=== PATIENT | female | born 1950 | race Caucasian/White ===

== ENCOUNTER 2018-11-24 05:48 | Day surgery (SDC) | payer MEDICARE, OTHER ==
[2018-11-24 06:38] LABS: ABSOLUTE BASOPHILS # (AUTO) 0.1 10^3/uL (0.0-0.2); ABSOLUTE EOSINOPHILS # (AUTO) 0.3 10^3/uL (0.0-0.6); ABSOLUTE LYMPHOCYTES (AUTO) 1.5 10^3/uL (0.5-4.7); ABSOLUTE NEUT (AUTO) 6.6 10^3/uL (1.7-8.2); BASOPHILS % (AUTO) 1.2 % (0-2); EOSINOPHILS % (AUTO) 3.3 % (0-6); HEMATOCRIT 40.3 % (36.0-47.0); HEMOGLOBIN 13.1 g/dL (12.0-15.5); LYMPHOCYTES % (AUTO) 16.2 % (13-45); MEAN CORPUSCULAR HEMOGLOBIN 28.8 pg (27.0-33.4); MEAN CORPUSCULAR HGB CONC 32.6 g/dL (32.0-36.0); MEAN CORPUSCULAR VOLUME 88 fl (80-97); MONOCYTES % (AUTO) 10.1 % (3-13); PLATELET COUNT 187 10^3/uL (150-450); RED BLOOD COUNT 4.56 10^6/uL (3.72-5.28); RED CELL DISTRIBUTION WIDTH 15.7 % (11.5-14.0); SEGMENTED NEUTROPHILS % (AUTO) 69.2 % (42-78); TOTAL CELLS COUNTED % (AUTO) 100 %; WHITE BLOOD COUNT 9.5 10^3/uL (4.0-10.5)
[2018-11-24 06:44] LABS: INTERNATIONAL RATION (INR) 0.83; PARTIAL THROMBOPLASTIN TIME 29.4 SEC (23.5-35.8); PROTHROMBIN TIME 11.4 SEC (11.4-15.4)
[2018-11-24 07:03] LABS: BLOOD UREA NITROGEN 42 mg/dL (7-20); GLUCOSE 160 mg/dL (75-110)
[2018-11-24] MEDS ORDERED: MIDAZOLAM 2 MG/2 ML INJ ONE (08:35)
[2018-11-24] MEDS ORDERED: FENTANYL CITRATE INJ/PF 100 MCG/2 ML AMPUL ONE (08:35)
--- NOTE | 2018-11-24 10:24 | RADIOLOGY REPORT (SQ) ---
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 CTDIvol: 20.3 mGy. DLP: 574 mGy-cm. mGy. LIMITATIONS: None. PROCEDURE: After obtaining informed consent and explaining the risks and benefits of conscious sedat ion,the patient agreed to the procedure. Preliminary CT scanning to localize the biopsy site was performed. A site was marked on the left low er pole kidney and time out was performed. Procedure was performed using CT fluoroscopy. Total expos ure time: [address] fluoroscopic images were obtained and saved to PACS. IV conscious sedation was administered and physician direction by the registered nurse using 1 millig tony of Versed and 50 micrograms of fentanyl. Physiologic monitoring was provided before, during, and after sedation. The total sedation time was 30 minutes. Documentation face to face time, the performing proceduralist, spent monitoring the patient: 10 minut es. After sterile skin prep with ChloraPrep, local lidocaine for skin and deep tissue anesthesia, the lef t lower pole kidney was localized. A coaxial 18 gauge needle was used to obtain 3 cores of tissue fro m the left lower pole kidney. The biopsy tract was embolized with Gelfoam. All CT scanners at this facility use dose modulation, iterative reconstruction, and/or weight based d osing when appropriate to reduce radiation dose to as low as reasonably achievable (ALARA). [facility]: Dose Right [facility]: CareDose [facility]: Dose Right [facility]: Teradose 4D [facility]: Rooster Teeth FINDINGS: There were no immediate complications. Specimen was carried to cytology on sterile saline gauze and submitted to the neck cutter for processing. Pathology is pending at the time of dict ation. IMPRESSION: CT GUIDED LEFT KIDNEY CORTICAL BIOPSY. COMMENT: Pathology is pending Patient medication list reviewed:Yes- Quality ID# [id number]:Eligible professional attests to documenting in the medical record they obtained, updated, or reviewed the patient's current medications.. TECHNICAL DOCUMENTATION: JOB ID: [id number] Quality ID #[id number]: Final reports for procedures using fluoroscopy that document radiation exposure nura cayetano, or exposure time and number of fluorographic images (if radiation exposure indices are not avail able) Quality ID # [id number]: Final reports with documentation of one or more dose reduction techniques (e.g., Au tomated exposure control, adjustment of the mA and/or kV according to patient size, use of iterative reconstruction technique) 2010 [employer]- All Rights Reserved Reading location - IP/workstation name: [email or web address]
--- NOTE | 2018-11-24 10:24 | RADIOLOGY REPORT (SQ) ---
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 CTDIvol: 20.3 mGy. DLP: 574 mGy-cm. mGy. LIMITATIONS: None. PROCEDURE: After obtaining informed consent and explaining the risks and benefits of conscious sedat ion,the patient agreed to the procedure. Preliminary CT scanning to localize the biopsy site was performed. A site was marked on the left low er pole kidney and time out was performed. Procedure was performed using CT fluoroscopy. Total expos ure time: [address] fluoroscopic images were obtained and saved to PACS. IV conscious sedation was administered and physician direction by the registered nurse using 1 millig tony of Versed and 50 micrograms of fentanyl. Physiologic monitoring was provided before, during, and after sedation. The total sedation time was 30 minutes. Documentation face to face time, the performing proceduralist, spent monitoring the patient: 10 minut es. After sterile skin prep with ChloraPrep, local lidocaine for skin and deep tissue anesthesia, the lef t lower pole kidney was localized. A coaxial 18 gauge needle was used to obtain 3 cores of tissue fro m the left lower pole kidney. The biopsy tract was embolized with Gelfoam. All CT scanners at this facility use dose modulation, iterative reconstruction, and/or weight based d osing when appropriate to reduce radiation dose to as low as reasonably achievable (ALARA). [facility]: Dose Right [facility]: CareDose [facility]: Dose Right [facility]: Teradose 4D [facility]: BioDetego FINDINGS: There were no immediate complications. Specimen was carried to cytology on sterile saline gauze and submitted to the bridge builder for processing. Pathology is pending at the time of dict ation. IMPRESSION: CT GUIDED LEFT KIDNEY CORTICAL BIOPSY. COMMENT: Pathology is pending Patient medication list reviewed:Yes- Quality ID# [id number]:Eligible professional attests to documenting in the medical record they obtained, updated, or reviewed the patient's current medications.. TECHNICAL DOCUMENTATION: JOB ID: [id number] Quality ID #[id number]: Final reports for procedures using fluoroscopy that document radiation exposure nura cayetano, or exposure time and number of fluorographic images (if radiation exposure indices are not avail able) Quality ID # [id number]: Final reports with documentation of one or more dose reduction techniques (e.g., Au tomated exposure control, adjustment of the mA and/or kV according to patient size, use of iterative reconstruction technique) 2010 [employer]- All Rights Reserved Reading location - IP/workstation name: [facility]
[2018-11-24 12:36] VITALS: BP 153/76
== END 2018-11-24 11:30 | disposition home or self-care (01) ==
LOC: RAD 05:48
PROVIDERS: ATTEND Internal Medicine Nephrology
DX: E11.22 Type 2 diabetes mellitus with diabetic chronic kidney disease (principal); E11.21 Type 2 diabetes mellitus with diabetic nephropathy; I12.9 Hypertensive chronic kidney disease with stage 1 through stage 4 chronic kidney disease, or unspecified chronic kidney disease; N18.3 Chronic kidney disease, stage 3 (moderate); E87.5 Hyperkalemia; Z79.899 Other long term (current) drug therapy; Z79.01 Long term (current) use of anticoagulants
CPT/HCPCS: 36415; 84520; 82565; 82947; 85025; 85610; 85730; 88346 ×2; 88348 ×2; 88313 ×2; 77012; 50200; J2250; J3010

== ENCOUNTER 2019-05-11 14:49 | Inpatient (IN) | payer MEDICARE ==
[2019-05-11] MEDS ORDERED: METHYLPREDNISOLONE INJ 125 MG/2 ML SDV IV ONE ×2 (15:01→17:45)
[2019-05-11] MEDS ORDERED: IPRATROPIUM/ALBUTEROL 0.5-2.5 MG/3 ML AMPUL NEB ONE ×2 (15:01→19:12)
[2019-05-11] MEDS ORDERED: MAGNESIUM SULFATE/D5W 1 GM/100 ML RTUPB IV ONE ×4 (15:01→17:45)
--- NOTE | 2019-05-11 15:03 | ER Document Report ---
ED Medical Screen (RME) - General Chief Complaint: Congestion Stated Complaint: COUGH,CONGESTION,SHORT OF BREATH Time Seen by Provider: 05/11/19 14:56 Primary Care Provider: ERIK SAINI MD [Primary Care Provider] - Follow up as needed TRAVEL OUTSIDE OF THE [place] IN LAST 30 DAYS: No - HPI Notes: 05/11/19 15:02 Patient is a 68-year-old female with a history of hypertension, type 2 diabetes (glucose 159 this morning), asthma, former smoker who presents complaining of dry cough for the past 5 days with shortness of breath and wheezing associated. No fever or obvious chest pain. She is urinating normally. Denies any prolonged immobilization, distance travel, recent surgery/trauma, personal cancer history, hormone use, smoking, or previous DVT/PE. Denies JUSTICE, fever, neck pain, URI, n/v/d, Abd pain, dysuria, back pain, or rash. I have treated and performed a rapid initial assessment of this patient. A comprehensive ED assessment and evaluation of the patient, analysis of test results and completion of medical decision making process will be conducted by additional ED providers. PHYSICAL EXAMINATION: GENERAL: Well-appearing, well-nourished and in no acute distress. A&Ox4. Answers questions appropriately. LUNGS: Diffuse wheezing bilaterally. No retractions. HEART: Regular rate and rhythm - Related Data Allergies/Adverse Reactions: cefuroxime [From Ceftin] Allergy (Verified 11/24/18 06:18) pcn Allergy (Uncoded 11/24/18 06:18) Past Medical History - Past Medical History Cardiac Medical History: Reports: Hx Hypertension Denies: Hx Coronary Artery Disease, Hx Heart Attack Pulmonary Medical History: Reports: Hx Asthma - allergy Denies: Hx Bronchitis, Hx COPD, Hx Pneumonia Neurological Medical History: Denies: Hx Cerebrovascular Accident, Hx Seizures Musculoskeltal Medical History: Denies Hx Arthritis Physical Exam - Vital signs Vitals: Temp Pulse Resp BP Pulse Ox 97.8 F 77 20 154/79 H 88 L 05/11/19 14:53 05/11/19 14:53 05/11/19 14:53 05/11/19 14:53 05/11/19 14:53 Course - Vital Signs Vital signs: Temp Pulse Resp BP Pulse Ox 97.8 F 77 20 154/79 H 88 L 05/11/19 14:53 05/11/19 14:53 05/11/19 14:53 05/11/19 14:53 05/11/19 14:53 Doctor's Discharge - Discharge Referrals: ERIK SAINI MD [Primary Care Provider] - Follow up as needed
[2019-05-11 16:24] LABS: A TYPE INFLUENZA AG NEGATIVE (NEGATIVE); B INFLUENZA AG NEGATIVE (NEGATIVE)
--- NOTE | 2019-05-11 16:30 | RADIOLOGY REPORT (SQ) ---
EXAM DESCRIPTION: CHEST 2 VIEWS COMPLETED DATE/TIME: 05/11/2019 4:09 pm REASON FOR STUDY: SOB COMPARISON: 11/07/2010 NUMBER OF VIEWS: Two view. TECHNIQUE: Frontal and lateral radiographic views of the chest acquired. LIMITATIONS: None. FINDINGS: LUNGS AND PLEURA: Peribronchial cuffing and interstitial changes. No consolidation, effus ion, or pneumothorax. MEDIASTINUM AND HILAR STRUCTURES: Age-appropriate contour. HEART AND VASCULAR STRUCTURES: Similar cardiomegaly. BONES: No acute findings. HARDWARE: None in the chest. OTHER: No other significant finding. IMPRESSION: REACTIVE AIRWAY DISEASE VERSUS VIRAL SYNDROME. NO CONSOLIDATION. TECHNICAL DOCUMENTATION: JOB ID: [id number] [place]-72 2010 [employer]- All Rights Reserved Reading location - IP/workstation name: [email or web address]
--- NOTE | 2019-05-11 17:15 | ER Document Report ---
ED Respiratory Problem - General Chief Complaint: Congestion Stated Complaint: COUGH,CONGESTION,SHORT OF BREATH Time Seen by Provider: 05/11/19 14:56 Mode of Arrival: Ambulatory Information source: Patient TRAVEL OUTSIDE OF THE [place] IN LAST 30 DAYS: No - HPI Patient complains to provider of: Short of breath, Other - Wheezing Onset: Just prior to arrival Duration: Intermittent episodes Initiating Event: URI Quality of pain: No pain Pain Level: 0 Context: Other Short of Breath: Moderate Cough: Nonproductive Sputum amount: Scant - Related Data Allergies/Adverse Reactions: cefuroxime [From Ceftin] Allergy (Verified 11/24/18 06:18) pcn Allergy (Uncoded 11/24/18 06:18) Past Medical History - Social History Smoking Status: Never Smoker Lives with: Friend Family History: Reviewed & Not Pertinent - Past Medical History Cardiac Medical History: Reports: Hx Hypertension Denies: Hx Coronary Artery Disease, Hx Heart Attack Pulmonary Medical History: Reports: Hx Asthma - allergy Denies: Hx Bronchitis, Hx COPD, Hx Pneumonia Neurological Medical History: Denies: Hx Cerebrovascular Accident, Hx Seizures Musculoskeletal Medical History: Denies Hx Arthritis - Immunizations Hx Pneumococcal Vaccination: 02/07/19 Review of Systems - Review of Systems Constitutional: See HPI Respiratory: See HPI, Cough, Wheezing Physical Exam - Vital signs Vitals: Temp Pulse Resp BP Pulse Ox 97.8 F 77 20 154/79 H 88 L 05/11/19 14:53 05/11/19 14:53 05/11/19 14:53 05/11/19 14:53 05/11/19 14:53 Interpretation: Normal - General General appearance: Appears well, Alert - HEENT Head: Normocephalic, Atraumatic Eyes: Normal Pupils: PERRL - Respiratory Respiratory status: No respiratory distress, Depressed respirations Chest status: Nontender Breath sounds: Normal, Wheezing Chest palpation: Normal - Cardiovascular Rhythm: Regular Heart sounds: Normal auscultation Murmur: No - Abdominal Inspection: Normal Distension: No distension Bowel sounds: Normal Tenderness: Nontender Organomegaly: No organomegaly - Back Back: Normal, Nontender - Extremities General upper extremity: Normal inspection, Nontender, Normal color, Normal ROM, Normal temperature General lower extremity: Normal inspection, Nontender, Normal color, Normal ROM, Normal temperature, Normal weight bearing. No: Anali's sign - Neurological Neuro grossly intact: Yes Cognition: Normal Orientation: AAOx4 [place] Coma Scale Eye Opening: Spontaneous Carin Coma Scale Verbal: Oriented Carin Coma Scale Motor: Obeys Commands [place] Coma Scale Total: 15 Speech: Normal Motor strength normal: LUE, RUE, LLE, RLE Sensory: Normal - Psychological Associated symptoms: Normal affect, Normal mood - Skin Skin Temperature: Warm Skin Moisture: Dry Skin Color: Normal Course - Re-evaluation Re-evalutation: 05/11/19 19:48 Patient sats remain low around 91% off the oxygen. Patient is moving more air at this time with a louder wheezing. Patient is just finished a course of 2 g of magnesium IV receiving IV fluids at this time and another breathing treatment. 05/11/19 20:53 I reevaluated patient after treatments for her for asthma which was not improving her condition. She continued to have low sats in the 91- I reviewed patient's lab results with finally resulted showing a BNP of 3000 consistent with CHF. Again then looked at her chest x-ray which showed cardiomegaly and vascular congestive markings consistent with CHF hence the diagnosis of CHF was made and patient case was discussed with Dr. Barbosa for admission. Patient has begun on Lasix 40 mg IV Nitropaste half inch to the skin and morphine 2 mg IV. 92% with increasing wheezing. - Vital Signs Vital signs: Temp Pulse Resp BP Pulse Ox 97.8 F 77 20 154/79 H 98 05/11/19 14:53 05/11/19 14:53 05/11/19 14:53 05/11/19 14:53 05/11/19 17:00 - Laboratory Result Diagrams: 05/11/19 19:06 05/11/19 19:06 Laboratory results interpreted by me: 05/11/19 05/11/19 05/11/19 17:55 19:06 19:06 Hgb 10.9 L Hct 33.8 L RDW 15.5 H Lymph % (Auto) 12.8 L VBG pH BUN 23 H Creatinine 1.91 H Est GFR ( Amer) 32 L Est GFR (MDRD) Non-Af 26 L Glucose 118 H Direct Bilirubin 0.6 H AST 52 H NT-Pro-B Natriuret Pep Urine Protein >=500 H Leukocyte Esterase Rfl TRACE H 05/11/19 05/11/19 19:06 19:06 Hgb Hct RDW Lymph % (Auto) VBG pH 7.28 L BUN Creatinine Est GFR ( Amer) Est GFR (MDRD) Non-Af Glucose Direct Bilirubin AST NT-Pro-B Natriuret Pep 3070 H Urine Protein Leukocyte Esterase Rfl - Diagnostic Test Radiology reviewed: Image reviewed, Reports reviewed Discharge - Discharge Clinical Impression: Congestive heart failure, History of asthma, Hypertension Condition: Fair Disposition: ADMITTED INPATIENT Admitting Provider: Familia (Hospitalist) Unit Admitted: [facility]
[2019-05-11] MEDS ORDERED: NORMAL SALINE 1000 ML 1,000 ML IV ONE (17:27)
[2019-05-11] MEDS ORDERED: MAGNESIUM SULFATE/D5W 0 GM/0 ML RTUPB IV ONE (18:15)
[2019-05-11 18:22] LABS: APPEARANCE,URINE SLIGHTLY-CLOUDY; BILIRUBIN,URINE NEGATIVE (NEGATIVE); COLOR,URINE YELLOW; GLUCOSE, URINE NEGATIVE (NEGATIVE); KETONES,URINE NEGATIVE (NEGATIVE); PROTEIN,URINE >=500 mg/dL (NEGATIVE); URINE SPECIFIC GRAVITY 1.017; UROBILINOGEN,URINE NEGATIVE mg/dL (<2.0)
--- NOTE | 2019-05-11 19:25 | EKG REPORT ---
SEVERITY:- OTHERWISE NORMAL ECG - SINUS RHYTHM LOW VOLTAGE IN FRONTAL LEADS : Confirmed by: Thad Mckeon MD 11-May-2019 19:24:40
[2019-05-11 19:36] LABS: ABSOLUTE EOSINOPHILS # (AUTO) 0.1 10^3/uL (0.0-0.6); ABSOLUTE LYMPHOCYTES (AUTO) 0.7 10^3/uL (0.5-4.7); ABSOLUTE MONOCYTES (AUTO) 0.5 10^3/uL (0.1-1.4); ABSOLUTE NEUT (AUTO) 4.1 10^3/uL (1.7-8.2); BASOPHILS % (AUTO) 0.7 % (0-2); EOSINOPHILS % (AUTO) 2.4 % (0-6); HEMATOCRIT 33.8 % (36.0-47.0); HEMOGLOBIN 10.9 g/dL (12.0-15.5); LYMPHOCYTES % (AUTO) 12.8 % (13-45); MEAN CORPUSCULAR HEMOGLOBIN 27.3 pg (27.0-33.4); MEAN CORPUSCULAR HGB CONC 32.2 g/dL (32.0-36.0); MEAN CORPUSCULAR VOLUME 85 fl (80-97); MONOCYTES % (AUTO) 9.1 % (3-13); PLATELET COUNT 192 10^3/uL (150-450); RED BLOOD COUNT 3.99 10^6/uL (3.72-5.28); RED CELL DISTRIBUTION WIDTH 15.5 % (11.5-14.0); TOTAL CELLS COUNTED % (AUTO) 100 %; WHITE BLOOD COUNT 5.4 10^3/uL (4.0-10.5)
[2019-05-11] MEDS ORDERED: AZITHROMYCIN 250 MG TABLET PO ONE (19:44)
[2019-05-11 19:45] LABS: VENOUS BLOOD BASE EXCESS -2.2 mmol/L; VENOUS BLOOD HCO3 25.4 mmol/L (20-32); VENOUS BLOOD PCO2 54.9 mmHg (35-63); VENOUS BLOOD PH 7.28 (7.30-7.42)
[2019-05-11 19:59] LABS: ALBUMIN 4.2 g/dL (3.5-5.0); ALKALINE PHOSPHATASE 49 U/L (38-126); ANION GAP 11 (5-19); ASPARTATE AMINO TRANSFERASE 52 U/L (14-36); BILIRUBIN,DIRECT 0.6 mg/dL (0.0-0.4); BILIRUBIN,TOTAL 0.7 mg/dL (0.2-1.3); BLOOD UREA NITROGEN 23 mg/dL (7-20); CALCIUM 9.8 mg/dL (8.4-10.2); CARBON DIOXIDE 26 mmol/L (22-30); CHLORIDE 103 mmol/L (98-107); GLUCOSE 118 mg/dL (75-110); POTASSIUM 4.6 mmol/L (3.6-5.0); TOTAL PROTEIN 7.6 g/dL (6.3-8.2)
[2019-05-11 20:11] LABS: NT PRO BNP 3070 pg/mL (<125)
[2019-05-11 20:12] LABS: TROPONIN I < 0.012 ng/mL
[2019-05-11] MEDS ORDERED: FUROSEMIDE INJ/PF 40 MG/4 ML SDV IV ONE (20:34)
[2019-05-11] MEDS ORDERED: MORPHINE SULFATE 10 MG/ML INJ IV ONE (20:35)
[2019-05-11] MEDS ORDERED: NITROGLYCERIN 2% OINTMENT 1 GM PACKET TP ONE (20:36)
[2019-05-11] MEDS ORDERED: ACETAMINOPHEN 325 MG TABLET PO PRN (20:43)
[2019-05-11] MEDS ORDERED: MAG HYDROX/AL HYDROX/SIMETH SUSP 30 ML UDCUP PO PRN (20:43)
[2019-05-11] MEDS ORDERED: DEXTROSE 40% GEL 15 GM TUBE PO PRN ×2 (20:47)
[2019-05-11] MEDS ORDERED: DEXTROSE 50%-WATER 25 GM/50 ML DISP.SYRIN IV PRN ×2 (20:47)
[2019-05-11] MEDS ORDERED: GLUCAGON,HUMAN RECOMB 1 MG INJ IM PRN (20:47)
[2019-05-11] MEDS: METOPROLOL TARTRATE 100 MG TABLET PO SCH (21:34)
[2019-05-11] MEDS: POTASSIUM CHLORIDE 10 MEQ TABLET.ER PO SCH (21:35)
[2019-05-11] MEDS: HEPARIN SOD (PORCINE) 5,000 UNIT/ML 1 ML VIAL SUBCUT SCH (21:37)
[2019-05-11] MEDS: INSULIN GLARGINE,HUM.REC.ANLOG 1,000 UNIT/10 ML VIAL SUBCUT SCH (23:29)
[2019-05-12 02:46] LABS: ABSOLUTE LYMPHOCYTES (AUTO) 0.4 10^3/uL (0.5-4.7); ABSOLUTE MONOCYTES (AUTO) 0.1 10^3/uL (0.1-1.4); ABSOLUTE NEUT (AUTO) 4.7 10^3/uL (1.7-8.2); BASOPHILS % (AUTO) 0.3 % (0-2); HEMATOCRIT 33.2 % (36.0-47.0); HEMOGLOBIN 10.9 g/dL (12.0-15.5); MEAN CORPUSCULAR HEMOGLOBIN 27.5 pg (27.0-33.4); MEAN CORPUSCULAR HGB CONC 32.7 g/dL (32.0-36.0); MEAN CORPUSCULAR VOLUME 84 fl (80-97); MONOCYTES % (AUTO) 2.6 % (3-13); PLATELET COUNT 184 10^3/uL (150-450); RED BLOOD COUNT 3.94 10^6/uL (3.72-5.28); RED CELL DISTRIBUTION WIDTH 16.2 % (11.5-14.0); SEGMENTED NEUTROPHILS % (AUTO) 89.1 % (42-78); TOTAL CELLS COUNTED % (AUTO) 100 %; WHITE BLOOD COUNT 5.3 10^3/uL (4.0-10.5)
[2019-05-12 02:57] LABS: ANION GAP 12 (5-19); BLOOD UREA NITROGEN 27 mg/dL (7-20); CALCIUM 9.5 mg/dL (8.4-10.2); CARBON DIOXIDE 24 mmol/L (22-30); CHLORIDE 103 mmol/L (98-107); GLUCOSE 340 mg/dL (75-110); POTASSIUM 4.9 mmol/L (3.6-5.0)
--- NOTE | 2019-05-12 05:03 | PDOC H&P ---
History of Present Illness Admission Date/PCP: 05/11/19 20:47 ERIK SAINI MD Patient complains of: SOB History of Present Illness: NAYAN ZAPATA is a 68 year old female with a past medical history of CKD 3, diabetes, hypertension and morbid obesity. She presents with 3 days of orthopnea, nonproductive cough, shortness of breath and lower extremity edema. She admits to dietary indiscretion and running out of her combination blood pressure medication. In the emergency department she is found to be tachypneic with a systolic blood pressure in the 190s, chest x-ray reveals pulmonary edema, labs reveal a BNP of 3000. She started on IV Lasix and referred to the hospitalist for admission. She denies chest pain nausea or vomiting. She denies a history of obstructive sleep apnea. Past Medical History Cardiac Medical History: Reports: Hypertension Denies: Coronary Artery Disease, Myocardial Infarction Pulmonary Medical History: Reports: Asthma - allergy Denies: Bronchitis, Chronic Obstructive Pulmonary Disease (COPD), Pneumonia Neurological Medical History: Denies: Seizures Endocrine Medical History: Reports: Diabetes Mellitus Type 2, Obesity Renal/ Medical History: Reports: Chronic Kidney Disease Musculoskeltal Medical History: Denies: Arthritis Hematology: Denies: Anemia Social History Information Source: Patient, [facility] Records Lives with: Friend Smoking Status: Never Smoker Frequency of Alcohol Use: None Drugs: None - Advance Directive Resuscitation Status: Full Code Family History Family History: Hypertension Parental Family History Reviewed: Yes Children Family History Reviewed: Yes Sibling(s) Family History Reviewed.: Yes Medication/Allergy Home Medications: Albuterol Sulfate [Proair Hfa Inhalation Aerosol 8.5 gm Mdi] 2 puff IH Q4 PRN 05/11/19 Alprazolam [Xanax] 0.5 mg PO BIDP PRN 05/11/19 Doxazosin Mesylate [Cardura 2 mg Tablet] 2 mg PO QHS 05/11/19 Fenofibrate [Lipofen] 200 mg PO DAILY 05/11/19 Fluticasone Propionate [Flonase Nasal [place] 50 Mcg/[place] 16 gm] 2 sprays NASL DAILY 05/11/19 Hydralazine HCl 100 mg PO BID 05/11/19 Linagliptin/Metformin HCl [Jentadueto Xr 2.5 mg-1,000 mg] 2 each PO DAILY 05/11/19 Losartan/Hydrochlorothiazide [Hyzaar 100-12.5 Tablet] 1 each PO DAILY 05/11/19 Repaglinide 1 mg PO TID 05/11/19 Spironolactone [Aldactone 25 mg Tablet] 25 mg PO DAILY 05/11/19 Tapentadol Hydrochloride [Nucynta] 50 mg PO QIDP PRN 05/11/19 Allergies/Adverse Reactions: cefuroxime [From Ceftin] Allergy (Verified 11/24/18 06:18) pcn Allergy (Uncoded 11/24/18 06:18) Review of Systems Constitutional: PRESENT: as per HPI, fatigue, weight gain. ABSENT: fever(s), headache(s), night sweats, weakness Eyes: ABSENT: visual disturbances Ears: ABSENT: hearing changes Cardiovascular: PRESENT: as per HPI, dyspnea on exertion, edema, orthropnea. ABSENT: chest pain, palpitations Respiratory: PRESENT: as per HPI, cough, dyspnea. ABSENT: hemoptysis, sputum Gastrointestinal: ABSENT: abdominal pain, constipation, diarrhea, hematemesis, hematochezia, nausea, vomiting Genitourinary: ABSENT: dysuria, hematuria Musculoskeletal: ABSENT: joint swelling Integumentary: ABSENT: rash, wounds Neurological: ABSENT: abnormal gait, abnormal speech, confusion, dizziness, focal weakness, syncope Psychiatric: ABSENT: anxiety, depression, homidical ideation, suicidal ideation Endocrine: ABSENT: cold intolerance, heat intolerance, polydipsia, polyuria Hematologic/Lymphatic: ABSENT: easy bleeding, easy bruising Physical Exam Vital Signs: Temp Pulse Resp BP Pulse Ox 97.8 F 77 17 122/108 H 95 05/11/19 14:53 05/11/19 14:53 05/11/19 23:00 05/11/19 22:00 05/11/19 23:00 Intake & Output 05/10/19 05/11/19 05/12/19 11:59 11:59 11:59 Intake Total 300 Balance 300 Weight 138.799 kg General appearance: PRESENT: cooperative, mild distress, morbidly obese, well- developed, well-nourished Head exam: PRESENT: atraumatic, normocephalic Eye exam: PRESENT: conjunctiva pink, EOMI, PERRLA. ABSENT: scleral icterus Ear exam: PRESENT: normal external ear exam Mouth exam: PRESENT: moist, tongue midline Neck exam: PRESENT: JVD. ABSENT: carotid bruit, lymphadenopathy, thyromegaly Respiratory exam: PRESENT: accessory muscle use, crackles, symmetrical, tachypnea. ABSENT: rales, rhonchi, wheezes Cardiovascular exam: PRESENT: gallop, RRR. ABSENT: diastolic murmur, rubs, systolic murmur Pulses: PRESENT: normal dorsalis pedis pul Vascular exam: PRESENT: normal capillary refill GI/Abdominal exam: PRESENT: normal bowel sounds, soft. ABSENT: distended, guarding, mass, organolmegaly, rebound, tenderness Rectal exam: PRESENT: deferred Extremities exam: PRESENT: full ROM, +1 edema. ABSENT: calf tenderness, clubbing, pedal edema Neurological exam: PRESENT: alert, awake, oriented to person, oriented to place, oriented to time, oriented to situation, CN II-XII grossly intact. ABSENT: motor sensory deficit Psychiatric exam: PRESENT: appropriate affect, normal mood. ABSENT: homicidal ideation, suicidal ideation Skin exam: PRESENT: dry, intact, warm. ABSENT: cyanosis, rash Results Laboratory Results: 05/12/19 02:37 05/12/19 02:37 05/11/19 05/11/19 05/11/19 17:55 19:06 19:06 WBC 5.4 RBC 3.99 Hgb 10.9 L Hct 33.8 L MCV 85 MCH 27.3 MCHC 32.2 RDW 15.5 H Plt Count 192 Seg Neutrophils % 75.0 VBG pH VBG pCO2 VBG HCO3 VBG Base Excess Sodium 140.1 Potassium 4.6 Chloride 103 Carbon Dioxide 26 Anion Gap 11 BUN 23 H Creatinine 1.91 H Est GFR ( Amer) 32 L Glucose 118 H Calcium 9.8 Total Bilirubin 0.7 AST 52 H Alkaline Phosphatase 49 Total Protein 7.6 Albumin 4.2 TSH Urine Color YELLOW Urine Appearance SLIGHTLY-CLOUDY Urine pH 5.0 Ur Specific [place] 1.017 Urine Protein >=500 H Urine Glucose (UA) NEGATIVE Urine Ketones NEGATIVE Urine Blood NEGATIVE Urine RBC (Auto) 0 05/11/19 05/11/19 05/12/19 19:06 19:06 02:37 WBC 5.3 RBC 3.94 Hgb 10.9 L Hct 33.2 L MCV 84 MCH 27.5 MCHC 32.7 RDW 16.2 H Plt Count 184 Seg Neutrophils % 89.1 H VBG pH 7.28 L VBG pCO2 54.9 VBG HCO3 25.4 VBG Base Excess -2.2 Sodium Potassium Chloride Carbon Dioxide Anion Gap BUN Creatinine Est GFR ( Amer) Glucose Calcium Total Bilirubin AST Alkaline Phosphatase Total Protein Albumin TSH 1.33 Urine Color Urine Appearance Urine pH Ur Specific [place] Urine Protein Urine Glucose (UA) Urine Ketones Urine Blood Urine RBC (Auto) 05/12/19 02:37 WBC RBC Hgb Hct MCV MCH MCHC RDW Plt Count Seg Neutrophils % VBG pH VBG pCO2 VBG HCO3 VBG Base Excess Sodium 138.5 Potassium 4.9 Chloride 103 Carbon Dioxide 24 Anion Gap 12 BUN 27 H Creatinine 1.92 H Est GFR ( Amer) 32 L Glucose 340 H Calcium 9.5 Total Bilirubin AST Alkaline Phosphatase Total Protein Albumin TSH Urine Color Urine Appearance Urine pH Ur Specific [place] Urine Protein Urine Glucose (UA) Urine Ketones Urine Blood Urine RBC (Auto) 05/11/19 05/11/19 05/12/19 19:06 21:56 02:37 Troponin I < 0.012 < 0.012 < 0.012 NT-Pro-B Natriuret Pep 3070 H Impressions: Chest X-Ray 05/11/19 15:00 IMPRESSION: REACTIVE AIRWAY DISEASE VERSUS VIRAL SYNDROME. NO CONSOLIDATION. Assessment and Plan - Diagnosis (1) Hypertensive urgency Is this a current diagnosis for this admission?: Yes Plan: IV Lasix, hydralazine and nitrates. (2) Diabetes Is this a current diagnosis for this admission?: Yes Plan: Lantus 10 units nightly and Humalog sliding scale QIC (3) Obstructive sleep apnea Is this a current diagnosis for this admission?: Yes Plan: Undiagnosed but strongly suspected by history, trial BiPAP (4) Congestive heart failure Is this a current diagnosis for this admission?: Yes Plan: Likely secondary to indiscretion of medication lifestyle, 2D echo, education, optimize pressure and volume. (5) CKD stage 3 due to type 2 diabetes mellitus Is this a current diagnosis for this admission?: Yes Plan: Appears at baseline, avoid nephrotoxic meds and doses, follow-up chemistry. - Time Time Spent with patient: 25-34 minutes - Inpatient Certification Medical Necessity: Need Close Monitoring Due to Risk of Patient Decompensation
[2019-05-12] MEDS: HEPARIN SOD (PORCINE) 5,000 UNIT/ML 1 ML VIAL SUBCUT SCH ×3 (06:23→21:56)
[2019-05-12] MEDS: INSULIN LISPRO 100 UNIT/ML 3 ML VIAL SUBCUT SCH ×3 (07:58→21:41)
[2019-05-12] MEDS ORDERED: NITROGLYCERIN 5 MG (0.2 MG/HR) PATCH.TD24 TD SCH (10:00)
[2019-05-12] MEDS ORDERED: FUROSEMIDE INJ/PF 40 MG/4 ML SDV IV SCH (10:00)
[2019-05-12] MEDS ORDERED: LOSARTAN POTASSIUM 50 MG TABLET PO SCH (10:00)
[2019-05-12] MEDS: POTASSIUM CHLORIDE 10 MEQ TABLET.ER PO SCH ×2 (10:16→21:56)
[2019-05-12] MEDS: ASPIRIN 81 MG TABLET, ENT COATED PO SCH (10:16)
[2019-05-12] MEDS: METOPROLOL TARTRATE 100 MG TABLET PO SCH (10:16)
--- NOTE | 2019-05-12 18:24 | PDOC PROGRESS REPORT ---
Subjective Progress Note for:: 05/12/19 Subjective:: NAYAN ZAPATA is a 68 year old female with a past medical history of CKD 3, diabetes, hypertension and morbid obesity who was admitted 05/11/19 for Hypertensive urgency and CHF exacerbation. The patient was seen on afternoon rounds while still in the emergency departm ent. She reports that she is feeling much better. She does remain on supplemental oxygen at 2 L/min; oxygen saturations noted to be in the high 90s. She is not home O2 dependent. She is looking forward to working with the transitions nutritional health coach, registered dietitian, and patient educator for better m anagement of her chronic medical conditions. She is agreeable to home health service. She does continue to have slight dyspnea with mild exertion and orthopnea, however, she notes that these are also improved. She denies fever, chills, chest pain, palpitations, abdominal pain, nausea vomiting and diarrhea. She has no other questions or concerns. No concerns per nursing. Reason For Visit: SANTOS, MORBID OBESITY CKD DM HEART FAILURE Physical Exam Vital Signs: Temp Pulse Resp BP Pulse Ox 97.6 F 77 15 167/80 H 99 05/12/19 06:23 05/11/19 14:53 05/12/19 09:12 05/12/19 09:12 05/12/19 09:12 Intake & Output 05/11/19 05/12/19 05/13/19 06:59 06:59 06:59 Intake Total 300 Balance 300 Weight 138.799 kg General appearance: PRESENT: no acute distress, cooperative, morbidly obese, well-developed, well-nourished Head exam: PRESENT: atraumatic, normocephalic Eye exam: PRESENT: conjunctiva pink, EOMI, PERRLA. ABSENT: scleral icterus Ear exam: PRESENT: normal external ear exam Mouth exam: PRESENT: moist, tongue midline Respiratory exam: PRESENT: prolonged expiratory phas, symmetrical, unlabored, wheezes, other - Supplemental oxygen by nasal cannula. ABSENT: rales, rhonchi Cardiovascular exam: PRESENT: RRR, +S1, +S2. ABSENT: diastolic murmur, rubs, systolic murmur Pulses: PRESENT: normal dorsalis pedis pul Vascular exam: PRESENT: normal capillary refill GI/Abdominal exam: PRESENT: normal bowel sounds, soft. ABSENT: distended, guarding, mass, organolmegaly, rebound, tenderness Rectal exam: PRESENT: deferred Extremities exam: PRESENT: full ROM, +1 edema - Bilaterally. ABSENT: calf tenderness, clubbing, pedal edema Neurological exam: PRESENT: alert, awake, oriented to person, oriented to place, oriented to time, oriented to situation, CN II-XII grossly intact. ABSENT: motor sensory deficit Psychiatric exam: PRESENT: appropriate affect, normal mood. ABSENT: homicidal ideation, suicidal ideation Skin exam: PRESENT: dry, intact, warm. ABSENT: cyanosis, rash Results Laboratory Results: 05/12/19 02:37 05/12/19 02:37 05/11/19 05/11/19 05/11/19 17:55 19:06 19:06 WBC 5.4 RBC 3.99 Hgb 10.9 L Hct 33.8 L MCV 85 MCH 27.3 MCHC 32.2 RDW 15.5 H Plt Count 192 Seg Neutrophils % 75.0 VBG pH VBG pCO2 VBG HCO3 VBG Base Excess Sodium 140.1 Potassium 4.6 Chloride 103 Carbon Dioxide 26 Anion Gap 11 BUN 23 H Creatinine 1.91 H Est GFR ( Amer) 32 L Glucose 118 H Calcium 9.8 Total Bilirubin 0.7 AST 52 H Alkaline Phosphatase 49 Total Protein 7.6 Albumin 4.2 TSH Urine Color YELLOW Urine Appearance SLIGHTLY-CLOUDY Urine pH 5.0 Ur Specific [place] 1.017 Urine Protein >=500 H Urine Glucose (UA) NEGATIVE Urine Ketones NEGATIVE Urine Blood NEGATIVE Urine RBC (Auto) 0 05/11/19 05/11/19 05/12/19 19:06 19:06 02:37 WBC 5.3 RBC 3.94 Hgb 10.9 L Hct 33.2 L MCV 84 MCH 27.5 MCHC 32.7 RDW 16.2 H Plt Count 184 Seg Neutrophils % 89.1 H VBG pH 7.28 L VBG pCO2 54.9 VBG HCO3 25.4 VBG Base Excess -2.2 Sodium Potassium Chloride Carbon Dioxide Anion Gap BUN Creatinine Est GFR ( Amer) Glucose Calcium Total Bilirubin AST Alkaline Phosphatase Total Protein Albumin TSH 1.33 Urine Color Urine Appearance Urine pH Ur Specific [place] Urine Protein Urine Glucose (UA) Urine Ketones Urine Blood Urine RBC (Auto) 05/12/19 02:37 WBC RBC Hgb Hct MCV MCH MCHC RDW Plt Count Seg Neutrophils % VBG pH VBG pCO2 VBG HCO3 VBG Base Excess Sodium 138.5 Potassium 4.9 Chloride 103 Carbon Dioxide 24 Anion Gap 12 BUN 27 H Creatinine 1.92 H Est GFR ( Amer) 32 L Glucose 340 H Calcium 9.5 Total Bilirubin AST Alkaline Phosphatase Total Protein Albumin TSH Urine Color Urine Appearance Urine pH Ur Specific [place] Urine Protein Urine Glucose (UA) Urine Ketones Urine Blood Urine RBC (Auto) 05/11/19 05/11/19 05/12/19 19:06 21:56 02:37 Troponin I < 0.012 < 0.012 < 0.012 NT-Pro-B Natriuret Pep 3070 H 05/12/19 09:00 Troponin I < 0.012 NT-Pro-B Natriuret Pep Impressions: Chest X-Ray 05/11/19 15:00 IMPRESSION: REACTIVE AIRWAY DISEASE VERSUS VIRAL SYNDROME. NO CONSOLIDATION. Assessment and Plan - Diagnosis (1) Hypertensive urgency Is this a current diagnosis for this admission?: Yes Plan: Patient is admitted to [facility] on continuous cardiac telemetry. We will continue her home medication regiment of Cardura, losartan, hydro chlorothiazide, spironolactone, and hydralazine. Continue to diurese with IV furosemide. They are initiating beta-kallie therapy. Low-sodium diet. (2) Congestive heart failure Is this a current diagnosis for this admission?: Yes Plan: Likely secondary to indiscretion of medication lifestyle Echocardiogram has been obtained; formalize report pending. proBNP elevated to 3000. Troponins negative x4. Patient is placed on a prerenal diet. Daily weights, strict I&O's. Resume home dose Cardura, losartan, hydrochlorothiazide, spironolactone, and hydralazine. Consider initiation of beta-kallie. Continue furosemide for diuresis. Daily aspirin and fenofibrate therapy. Consider cardiology consultation. (3) Diabetes Is this a current diagnosis for this admission?: Yes Plan: A1c is 7.8%. She is placed on a consistent carb/prerenal diet. Home medication regiment on hold (nonformulary). Accu-Cheks before meals and at bedtime with Humalog for sliding scale coverage. Hypoglycemia protocol. Registered dietitian and medical educator consulted. (4) History of asthma Is this a current diagnosis for this admission?: Yes Plan: Slight wheezing noted on exam today. She is not on maintenance medications. We will resume Flonase. Supplemental oxygen as needed. As needed nebulizer treatments. (5) Obstructive sleep apnea Is this a current diagnosis for this admission?: Yes Plan: Undiagnosed but strongly suspected by history, trial BiPAP Recommend outpatient sleep study. (6) CKD stage 3 due to type 2 diabetes mellitus Is this a current diagnosis for this admission?: Yes Plan: Appears at baseline, avoid nephrotoxic meds and doses, follow-up chemistry. - Time Time Spent with patient: 25-34 minutes Medications reviewed and adjusted accordingly: Yes Anticipated discharge: Home with Homehealth Within: within 48 hours
[2019-05-12] MEDS ORDERED: REPAGLINIDE 1 MG PO SCH (19:00)
--- NOTE | 2019-05-12 21:52 | XCELERA REPORT ---
[address] [address] Transthoracic Echocardiogram Report Name: NAYAN ZAPATA Age: 68 yrs Gender: Female : 1950 Patient Status: Inpatient Patient [address] Study Date: 05/12/2019 10:46 AM Height: 63 in Weight: 306 lb BSA: 2.3 m2 Procedure: A two-dimensional transthoracic echocardiogram with color flow and Doppler was performed. Study Quality: Fair. Reason For Study: systolic murmur / CHF History: systolic murmur / CHF. Ordering Physician: JOHNATHON DORADO Performed By: Terry Morris Interpretation Summary The left ventricle is normal in size. LV EF is > than 65% Left ventricular systolic function is normal. Doppler measurements suggest normal left ventricular diastolic function The left ventricular wall motion is normal. There is no thrombus. No ASD ,VSD , or PFO seen. The right ventricle is not well visualized secondary to technical limitations The right atrium is mildly dilated. The left atrium is moderately dilated. There is mild to moderate mitral annular calcification. There is mild mitral leaflet calcification. There is no evidence of mitral valve prolapse. There is no vegetation seen on the mitral valve. There is mild mitral stenosis There is a mild amount of mitral regurgitation There is no aortic valvular vegetation. There is no aortic valve stenosis There is aortic sclerosis without aortic stenosis. There is no LVOT obstruction. No aortic regurgitation is present. There is no tricuspid stenosis. There is a mild to moderate amount of tricuspid regurgitation There is servere pulmonary hypertension by echo RVSP is at least 82 mm of Hg , with RA mean of atleast 20. There is no pulmonic valvular stenosis. There is no pulmonic valvular regurgitation. The aortic root is normal size. The inferior vena cava appeared dilated and did not change with respiration (RAP > 20 mmHg) Small pericardial effusion. There is a small pericardial effusion that is circumferential There are no echocardiographic or Doppler indications for cardiac tamponade MMode/2D Measurements & Calculations RVDd: 4.3 cm LVIDd: 4.8 cm FS: 41.0 % Ao root diam: 2.7 cm IVSd: 0.94 cm LVIDs: 2.8 cm EDV(Teich): 108.9 ml Ao root area: 5.7 cm2 LVPWd: 0.89 cm ESV(Teich): 30.8 ml LA dimension: 4.8 cm EF(Teich): 71.7 % Doppler Measurements & Calculations MV E max ziyad: MV P1/2t max ziyad: Ao V2 max: LV V1 max P.9 cm/sec 121.3 cm/sec 174.6 cm/sec 6.7 mmHg MV A max ziyad: MV P1/2t: 73.5 msec Ao max PG: LV V1 max: 58.2 cm/sec MVA(P1/2t): 3.0 cm2 12.2 mmHg 129.3 cm/sec MV E/A: 2.1 MV dec slope: 483.1 cm/sec2 MV dec time: 0.21 sec PA V2 max: TR max ziyad: MV P1/2t-pr_phl: 97.7 cm/sec 394.9 cm/sec 73.5 msec PA max P.8 mmHgTR max P.4 mmHg Left Ventricle The left ventricle is normal in size. LV EF is > than 65%. Left ventricular systolic function is normal. Doppler measurements suggest normal left ventricular diastolic function. The left ventricular wall motion is normal. There is no thrombus. No ASD ,VSD , or PFO seen. Right Ventricle The right ventricle is not well visualized secondary to technical limitations. Atria The right atrium is mildly dilated. The left atrium is moderately dilated. Mitral Valve There is mild to moderate mitral annular calcification. There is mild mitral leaflet calcification. There is no evidence of mitral valve prolapse. There is no vegetation seen on the mitral valve. There is mild mitral stenosis. There is a mild amount of mitral regurgitation. Aortic Valve There is no aortic valvular vegetation. There is no aortic valve stenosis. There is aortic sclerosis without aortic stenosis. There is no LVOT obstruction. No aortic regurgitation is present. Tricuspid Valve There is no tricuspid stenosis. There is a mild to moderate amount of tricuspid regurgitation. There is servere pulmonary hypertension by echo. RVSP is at least 82 mm of Hg , with RA mean of atleast 20. Pulmonic Valve There is no pulmonic valvular stenosis. There is no pulmonic valvular regurgitation. Great Vessels The aortic root is normal size. The inferior vena cava appeared dilated and did not change with respiration (RAP > 20 mmHg). Effusions Small pericardial effusion. There is a small pericardial effusion that is circumferential. There are no echocardiographic or Doppler indications for cardiac tamponade. : JOHNATHON DORADO Lakshmi
[2019-05-12] MEDS: INSULIN GLARGINE,HUM.REC.ANLOG 1,000 UNIT/10 ML VIAL SUBCUT SCH (21:57)
[2019-05-12] MEDS: DOXAZOSIN MESYLATE 2 MG TABLET PO SCH (22:04)
[2019-05-13 05:26] LABS: HEMATOCRIT 31.4 % (36.0-47.0); HEMOGLOBIN 10.2 g/dL (12.0-15.5); MEAN CORPUSCULAR HEMOGLOBIN 27.5 pg (27.0-33.4); MEAN CORPUSCULAR HGB CONC 32.6 g/dL (32.0-36.0); MEAN CORPUSCULAR VOLUME 84 fl (80-97); PLATELET COUNT 198 10^3/uL (150-450); RED BLOOD COUNT 3.72 10^6/uL (3.72-5.28); RED CELL DISTRIBUTION WIDTH 16.1 % (11.5-14.0); WHITE BLOOD COUNT 8.2 10^3/uL (4.0-10.5)
[2019-05-13 05:44] LABS: ANION GAP 10 (5-19); BLOOD UREA NITROGEN 48 mg/dL (7-20); CARBON DIOXIDE 24 mmol/L (22-30); CHLORIDE 105 mmol/L (98-107); GLUCOSE 160 mg/dL (75-110); POTASSIUM 5.3 mmol/L (3.6-5.0)
[2019-05-13] MEDS: HEPARIN SOD (PORCINE) 5,000 UNIT/ML 1 ML VIAL SUBCUT SCH ×3 (05:59→21:57)
[2019-05-13] MEDS: INSULIN LISPRO 100 UNIT/ML 3 ML VIAL SUBCUT SCH ×3 (08:16→17:16)
[2019-05-13] MEDS: HYDRALAZINE HCL 50 MG TABLET PO SCH ×2 (09:04→17:16)
[2019-05-13] MEDS: FLUTICASONE NASAL SPRAY 50 MCG/SPRY 120 SPRAY/16 GM NASL SCH (09:04)
[2019-05-13] MEDS: FENOFIBRATE NANOCRYSTALLIZED 145 MG TABLET PO SCH (09:04)
[2019-05-13] MEDS: ASPIRIN 81 MG TABLET, ENT COATED PO SCH (09:04)
[2019-05-13] MEDS ORDERED: LOSARTAN POTASSIUM 50 MG TABLET PO SCH (10:00)
[2019-05-13] MEDS ORDERED: HYDROCHLOROTHIAZIDE 12.5 MG TABLET PO SCH (10:00)
[2019-05-13] MEDS ORDERED: (PENDING PHARMACY ID) (Hydralazine Hcl [Hydralazine Hcl] 100 MG) PO SCH (10:00)
[2019-05-13] MEDS ORDERED: FENOFIBRATE 200 MG PO SCH (10:00)
[2019-05-13] MEDS ORDERED: REPAGLINIDE 1 MG PO SCH (10:00)
[2019-05-13] MEDS ORDERED: SPIRONOLACTONE 25 MG TABLET PO SCH (10:00)
[2019-05-13] MEDS ORDERED: (PENDING PHARMACY ID) (Losartan/Hydrochlorothiazide [Hyzaar 100-12.5 Tablet] 1 EACH) PO SCH (10:00)
[2019-05-13] MEDS: ALBUTEROL SULFATE 0.083% NEB 2.5 MG/3 ML AMPUL NEB PRN ×3 (14:01→22:30)
--- NOTE | 2019-05-13 15:22 | PDOC PROGRESS REPORT ---
Subjective Progress Note for:: 05/13/19 Subjective:: NAYAN ZAPATA is a 68 year old female with a past medical history of CKD 3, diabetes, hypertension and morbid obesity who was admitted 05/11/19 for Hypertensive urgency and CHF exacerbation. The patient was seen on morning rounds. She was found sitting up to the recl iner, comfortably, on room air. She reports continued wheezing and shortness of breath, however, improved from yesterday. She reports improvement in her bilateral lower extremity edema. She remains interested in meeting with the patient educator and registered dietitian. She denies fever, chills, chest pain, palpitations, abdominal pain, nausea vomiting and diarrhea. She has no other questions or concerns. No concerns per nursing. Reason For Visit: SANTOS, MORBID OBESITY CKD DM HEART FAILURE Physical Exam Vital Signs: Temp Pulse Resp BP Pulse Ox 97.5 F 96 18 139/52 H 86 L 05/13/19 11:32 05/13/19 14:05 05/13/19 14:05 05/13/19 11:32 05/13/19 14:05 Intake & Output 05/12/19 05/13/19 05/14/19 06:59 06:59 06:59 Intake Total 300 400 120 Output Total 0 Balance 300 400 120 Weight 138.799 kg 137.4 kg 137.4 kg General appearance: PRESENT: no acute distress, cooperative, morbidly obese, well-developed, well-nourished Head exam: PRESENT: atraumatic, normocephalic Eye exam: PRESENT: conjunctiva pink, EOMI, PERRLA. ABSENT: scleral icterus Ear exam: PRESENT: normal external ear exam Mouth exam: PRESENT: moist, tongue midline Respiratory exam: PRESENT: prolonged expiratory phas, rhonchi, symmetrical, unlabored, wheezes. ABSENT: rales Cardiovascular exam: PRESENT: RRR, +S1, +S2. ABSENT: diastolic murmur, rubs, systolic murmur Pulses: PRESENT: normal dorsalis pedis pul Vascular exam: PRESENT: normal capillary refill GI/Abdominal exam: PRESENT: normal bowel sounds, soft. ABSENT: distended, guarding, mass, organolmegaly, rebound, tenderness Rectal exam: PRESENT: deferred Extremities exam: PRESENT: full ROM. ABSENT: calf tenderness, clubbing, pedal edema Neurological exam: PRESENT: alert, awake, oriented to person, oriented to place, oriented to time, oriented to situation, CN II-XII grossly intact. ABSENT: motor sensory deficit Psychiatric exam: PRESENT: appropriate affect, normal mood. ABSENT: homicidal ideation, suicidal ideation Skin exam: PRESENT: dry, intact, warm. ABSENT: cyanosis, rash Results Laboratory Results: 05/13/19 04:38 05/13/19 04:38 05/13/19 05/13/19 04:38 04:38 WBC 8.2 RBC 3.72 Hgb 10.2 L Hct 31.4 L MCV 84 MCH 27.5 MCHC 32.6 RDW 16.1 H Plt Count 198 Sodium 139.3 Potassium 5.3 H Chloride 105 Carbon Dioxide 24 Anion Gap 10 BUN 48 H Creatinine 2.63 H Est GFR ( Amer) 22 L Glucose 160 H Calcium 9.0 05/11/19 05/11/19 05/12/19 19:06 21:56 02:37 Troponin I < 0.012 < 0.012 < 0.012 NT-Pro-B Natriuret Pep 3070 H 05/12/19 09:00 Troponin I < 0.012 NT-Pro-B Natriuret Pep Impressions: Chest X-Ray 05/11/19 15:00 IMPRESSION: REACTIVE AIRWAY DISEASE VERSUS VIRAL SYNDROME. NO CONSOLIDATION. Assessment and Plan - Diagnosis (1) Hypertensive urgency Is this a current diagnosis for this admission?: Yes Plan: Improved; acceptable blood pressures on home medication regiment. Patient is admitted to [facility] on continuous cardiac telemetry. We will continue her home medication regiment of Cardura, losartan, hydrochlorothiazide, spironolactone, and hydralazine. Low-sodium diet. Cardiology is consulted secondary to pulmonary hypertension; appreciate Dr. Helton's assistance with medication recommendations. (2) Congestive heart failure Is this a current diagnosis for this admission?: Yes Plan: Echocardiogram demonstrates normal LVEF and left ventricular diastolic dysfunction. Does demonstrate severe pulmonary hypertension. proBNP elevated to 3000. Troponins negative x4. Patient is placed on a prerenal diet. Daily weights, strict I&O's. Resume home dose Cardura, losartan, hydrochlorothiazide, spironolactone, and hydralazine. Daily aspirin and fenofibrate therapy. Appreciate cardiology consultation for pulmonary hypertension. (3) Diabetes Is this a current diagnosis for this admission?: Yes Plan: A1c is 7.8%. She is placed on a consistent carb/prerenal diet. Home medication regiment on hold (nonformulary). Accu-Cheks before meals and at bedtime with Humalog for sliding scale coverage. Hypoglycemia protocol. Registered dietitian and nurses educator consulted. (4) History of asthma Is this a current diagnosis for this admission?: Yes Plan: Slight wheezing noted on exam today. She is not on maintenance medications. We will resume Flonase. Supplemental oxygen as needed. As needed nebulizer treatments. Will start low-dose prednisone secondary to continued wheezing (5) Obstructive sleep apnea Is this a current diagnosis for this admission?: Yes Plan: Undiagnosed but strongly suspected by history, trial BiPAP Recommend outpatient sleep study. (6) Acute worsening of stage 3 chronic kidney disease Is this a current diagnosis for this admission?: Yes Plan: Creatinine bumped to 2.63 from baseline of 1.9 related to IV furosemide. Have discontinued furosemide. Have placed losartan, hydrochlorothiazide, and spironolactone on hold. Avoid nephrotoxic medications as able. Encourage p.o. fluids. Follow-up chemistry. (7) CKD stage 3 due to type 2 diabetes mellitus Is this a current diagnosis for this admission?: Yes Plan: As above. - Time Time Spent with patient: 25-34 minutes Medications reviewed and adjusted accordingly: Yes Anticipated discharge: Home with Homehealth Within: within 24 hours
[2019-05-13] MEDS: PREDNISONE 20 MG TABLET PO SCH (17:16)
[2019-05-13] MEDS: DOXAZOSIN MESYLATE 2 MG TABLET PO SCH (21:57)
[2019-05-13] MEDS: INSULIN GLARGINE,HUM.REC.ANLOG 1,000 UNIT/10 ML VIAL SUBCUT SCH (21:57)
[2019-05-14] MEDS: ALBUTEROL SULFATE 0.083% NEB 2.5 MG/3 ML AMPUL NEB PRN ×4 (02:56→19:58)
[2019-05-14 04:11] LABS: HEMATOCRIT 32.5 % (36.0-47.0); HEMOGLOBIN 10.5 g/dL (12.0-15.5); MEAN CORPUSCULAR HEMOGLOBIN 27.1 pg (27.0-33.4); MEAN CORPUSCULAR HGB CONC 32.4 g/dL (32.0-36.0); MEAN CORPUSCULAR VOLUME 84 fl (80-97); PLATELET COUNT 208 10^3/uL (150-450); RED BLOOD COUNT 3.87 10^6/uL (3.72-5.28); WHITE BLOOD COUNT 6.8 10^3/uL (4.0-10.5)
[2019-05-14 04:25] LABS: ANION GAP 12 (5-19); BLOOD UREA NITROGEN 57 mg/dL (7-20); CALCIUM 9.1 mg/dL (8.4-10.2); CARBON DIOXIDE 22 mmol/L (22-30); CHLORIDE 105 mmol/L (98-107); GLUCOSE 366 mg/dL (75-110); POTASSIUM 5.1 mmol/L (3.6-5.0)
[2019-05-14] MEDS: HEPARIN SOD (PORCINE) 5,000 UNIT/ML 1 ML VIAL SUBCUT SCH ×3 (06:07→21:18)
[2019-05-14] MEDS: INSULIN LISPRO 100 UNIT/ML 3 ML VIAL SUBCUT SCH ×3 (07:59→17:01)
[2019-05-14] MEDS: HYDRALAZINE HCL 50 MG TABLET PO SCH ×2 (09:49→17:01)
[2019-05-14] MEDS: FLUTICASONE NASAL SPRAY 50 MCG/SPRY 120 SPRAY/16 GM NASL SCH (09:49)
[2019-05-14] MEDS: PREDNISONE 20 MG TABLET PO SCH ×2 (09:49→17:01)
[2019-05-14] MEDS: ASPIRIN 81 MG TABLET, ENT COATED PO SCH (09:49)
[2019-05-14] MEDS: FENOFIBRATE NANOCRYSTALLIZED 145 MG TABLET PO SCH (09:49)
[2019-05-14] MEDS ORDERED: NORMAL SALINE 1000 ML 1,000 ML IV PRN (11:36)
[2019-05-14] MEDS: LEVOFLOXACIN 250 MG TABLET PO SCH (12:04)
--- NOTE | 2019-05-14 13:56 | PDOC PROGRESS REPORT ---
Subjective Progress Note for:: 05/14/19 Subjective:: NAYAN ZAPATA is a 68 year old female with a past medical history of CKD 3, diabetes, hypertension and morbid obesity who was admitted 05/11/19 for Hypertensive urgency and CHF exacerbation. The patient was seen on morning rounds with close friend present. She was found sitting up to the recliner, comfortably, on supplemental oxygen via [place]. She reports continued wheezing and shortness of breath, however, continues to improve. Very pleased with conversation with long term acute care registered nurse and educator. She denies fever, chills, chest pain, palpitations, abdominal pain, nausea vomiting and diarrhea. She has no other questions or concerns. No concerns per nursing. Reason For Visit: SANTOS, MORBID OBESITY CKD DM HEART FAILURE Physical Exam Vital Signs: Temp Pulse Resp BP Pulse Ox 97.4 F 78 16 131/41 H 97 05/14/19 11:29 05/14/19 11:29 05/14/19 11:29 05/14/19 11:29 05/14/19 11:29 Intake & Output 05/13/19 05/14/19 05/15/19 06:59 06:59 06:59 Intake Total 400 800 120 Output Total 0 Balance 400 800 120 Weight 137.4 kg 137.4 kg General appearance: PRESENT: no acute distress, cooperative, morbidly obese, well-developed, well-nourished Head exam: PRESENT: atraumatic, normocephalic Eye exam: PRESENT: conjunctiva pink, EOMI, PERRLA. ABSENT: scleral icterus Ear exam: PRESENT: normal external ear exam Mouth exam: PRESENT: moist, tongue midline Respiratory exam: PRESENT: rhonchi, symmetrical, unlabored, wheezes, other - oxygen via NC. ABSENT: rales Cardiovascular exam: PRESENT: RRR, +S1, +S2. ABSENT: diastolic murmur, rubs, systolic murmur Pulses: PRESENT: normal dorsalis pedis pul Vascular exam: PRESENT: normal capillary refill GI/Abdominal exam: PRESENT: normal bowel sounds, soft. ABSENT: distended, guarding, mass, organolmegaly, rebound, tenderness Rectal exam: PRESENT: deferred Extremities exam: PRESENT: full ROM. ABSENT: calf tenderness, clubbing, pedal edema Neurological exam: PRESENT: alert, awake, oriented to person, oriented to place, oriented to time, oriented to situation, CN II-XII grossly intact. ABSENT: motor sensory deficit Psychiatric exam: PRESENT: appropriate affect, normal mood. ABSENT: homicidal ideation, suicidal ideation Skin exam: PRESENT: dry, intact, warm. ABSENT: cyanosis, rash Results Laboratory Results: 05/14/19 03:58 05/14/19 03:58 05/14/19 05/14/19 03:58 03:58 WBC 6.8 RBC 3.87 Hgb 10.5 L Hct 32.5 L MCV 84 MCH 27.1 MCHC 32.4 RDW 16.0 H Plt Count 208 Sodium 138.6 Potassium 5.1 H Chloride 105 Carbon Dioxide 22 Anion Gap 12 BUN 57 H Creatinine 2.53 H Est GFR ( Amer) 23 L Glucose 366 H Calcium 9.1 05/11/19 05/11/19 05/12/19 19:06 21:56 02:37 Troponin I < 0.012 < 0.012 < 0.012 NT-Pro-B Natriuret Pep 3070 H 05/12/19 09:00 Troponin I < 0.012 NT-Pro-B Natriuret Pep Impressions: Chest X-Ray 05/11/19 15:00 IMPRESSION: REACTIVE AIRWAY DISEASE VERSUS VIRAL SYNDROME. NO CONSOLIDATION. Assessment and Plan - Diagnosis (1) Hypertensive urgency Is this a current diagnosis for this admission?: Yes Plan: Improved; acceptable blood pressures on home medication regiment. Patient is admitted to [facility] on continuous cardiac telemetry. We will continue her home medication regiment of Cardura and hydralazine. Losartan, hydrochlorothiazide, and spironolactone currently on hold secondary to acute kidney injury. Low-sodium diet. Cardiology is consulted secondary to pulmonary hypertension; appreciate Dr. Helton's assistance with medication recommendations. (2) Congestive heart failure Is this a current diagnosis for this admission?: Yes Plan: Echocardiogram demonstrates normal LVEF and left ventricular diastolic dysfunction. Does demonstrate severe pulmonary hypertension. proBNP elevated to 3000. Troponins negative x4. Patient is placed on a prerenal diet. Daily weights, strict I&O's. Resume home dose Cardura, losartan, hydrochlorothiazide, spironolactone, and hydralazine. Daily aspirin and fenofibrate therapy. Registered dietitian and patient educator consulted. Appreciate cardiology consultation for pulmonary hypertension. (3) Diabetes Is this a current diagnosis for this admission?: Yes Plan: A1c is 7.8%. She is placed on a consistent carb/prerenal diet. Home medication regiment on hold (nonformulary). Accu-Cheks before meals and at bedtime with Humalog for sliding scale coverage. Hypoglycemia protocol. Registered dietitian and digital marketer consulted. (4) History of asthma Is this a current diagnosis for this admission?: Yes Plan: Slight wheezing noted on exam today. She is not on maintenance medications. Continue Flonase. Supplemental oxygen as needed. As needed nebulizer treatments. Continue low-dose prednisone secondary to continued wheezing (5) Obstructive sleep apnea Is this a current diagnosis for this admission?: Yes Plan: Undiagnosed but strongly suspected by history, trial BiPAP Recommend outpatient sleep study. (6) Acute worsening of stage 3 chronic kidney disease Is this a current diagnosis for this admission?: Yes Plan: Creatinine bumped to 2.63 from baseline of 1.9 related to IV furosemide. Have discontinued furosemide. Have placed losartan, hydrochlorothiazide, and spironolactone on hold. Avoid nephrotoxic medications as able. Encourage p.o. fluids. 1L NS x1 Follow-up chemistry. (7) CKD stage 3 due to type 2 diabetes mellitus Is this a current diagnosis for this admission?: Yes Plan: As above. - Time Time Spent with patient: 25-34 minutes Medications reviewed and adjusted accordingly: Yes Anticipated discharge: Home Within: within 48 hours - pending improvement in Creatinine
--- NOTE | 2019-05-14 19:13 | PDOC CONSULTATION ---
Consultation Consult Date: 05/14/19 Provider Consulted: BECKY GALVEZ Consult reason:: Pulmonary hypertension History of Present Illness Admission Date/PCP: 05/11/19 20:47 ERIK SAINI MD Patient complains of: Shortness of breath History of Present Illness: NAYAN ZAPATA is a 68 year old female With the following active problems 1. Systemic hypertension 2. Obesity 3. Diastolic heart failure 4. Pulmonary hypertension 5. Diabetes mellitus 68-year-old female admitted for volume overload, poorly controlled systemic hypertension likely diastolic heart failure. Echocardiogram was performed which showed severe pulmonary hypertension is reported to me. Presently patient is doing a lot better. She admits to indulging in a lot of salty and unhealthy foods over the holidays. No prior cardiac history. Definitely no mention of coronary artery disease or myocardial infarction. Surgical history includes orthopedic surgery with implants in the right lower extremity. Was never really a cigarette smoker. No familial illnesses reported. Past Medical History Cardiac Medical History: Reports: Hypertension Denies: Coronary Artery Disease, Myocardial Infarction Pulmonary Medical History: Reports: Asthma - allergy Denies: Bronchitis, Chronic Obstructive Pulmonary Disease (COPD), Pneumonia Neurological Medical History: Denies: Seizures Endocrine Medical History: Reports: Diabetes Mellitus Type 2, Obesity Renal/ Medical History: Reports: Chronic Kidney Disease Musculoskeltal Medical History: Denies: Arthritis Psychiatric Medical History: Reports: Depression Hematology: Denies: Anemia Social History Lives with: Friend Smoking Status: Never Smoker Frequency of Alcohol Use: None Drugs: None - Advance Directive Resuscitation Status: Full Code Family History Family History: Hypertension Parental Family History Reviewed: No - No familial illnesses Children Family History Reviewed: NA Sibling(s) Family History Reviewed.: NA Medication/Allergy Home Medications: Albuterol Sulfate [Proair Hfa Inhalation Aerosol 8.5 gm Mdi] 2 puff IH Q4 PRN 05/11/19 Alprazolam [Xanax] 0.5 mg PO BIDP PRN 05/11/19 Doxazosin Mesylate [Cardura 2 mg Tablet] 2 mg PO QHS 05/11/19 Fenofibrate [Lipofen] 200 mg PO DAILY 05/11/19 Fluticasone Propionate [Flonase Nasal [place] 50 Mcg/[place] 16 gm] 2 sprays NASL DAILY 05/11/19 Hydralazine HCl 100 mg PO BID 05/11/19 Linagliptin/Metformin HCl [Jentadueto Xr 2.5 mg-1,000 mg] 2 each PO DAILY 05/11/19 Losartan/Hydrochlorothiazide [Hyzaar 100-12.5 Tablet] 1 each PO DAILY 05/11/19 Repaglinide 1 mg PO TID 05/11/19 Spironolactone [Aldactone 25 mg Tablet] 25 mg PO DAILY 05/11/19 Tapentadol Hydrochloride [Nucynta] 50 mg PO QIDP PRN 05/11/19 Allergies/Adverse Reactions: cefuroxime [From Ceftin] Allergy (Verified 11/24/18 06:18) pcn Allergy (Uncoded 11/24/18 06:18) Review of Systems Eyes: PRESENT: as per HPI Ears: PRESENT: as per HPI Nose, Mouth, and Throat: PRESENT: as per HPI Cardiovascular: PRESENT: edema Respiratory: PRESENT: cough, dyspnea Gastrointestinal: PRESENT: as per HPI Physical Exam Vital Signs: Temp Pulse Resp BP Pulse Ox 97.8 F 86 16 155/48 H 100 05/14/19 15:21 05/14/19 15:21 05/14/19 15:21 05/14/19 15:21 05/14/19 15:21 Intake & Output 05/13/19 05/14/19 05/15/19 06:59 06:59 06:59 Intake Total 400 800 980 Output Total 0 Balance 400 800 980 Weight 137.4 kg 137.4 kg General appearance: PRESENT: no acute distress, morbidly obese Head exam: PRESENT: atraumatic, normocephalic Eye exam: PRESENT: conjunctiva pink, EOMI Neck exam: PRESENT: JVD Respiratory exam: PRESENT: crackles, symmetrical, unlabored Cardiovascular exam: PRESENT: RRR, +S1, +S2 Pulses: PRESENT: normal radial pulses GI/Abdominal exam: PRESENT: soft Rectal exam: PRESENT: deferred Musculoskeletal exam: PRESENT: normal inspection Neurological exam: PRESENT: alert, awake, oriented to person, oriented to place, oriented to time, oriented to situation Psychiatric exam: PRESENT: appropriate affect Skin exam: PRESENT: dry, intact Results Laboratory Results: 05/14/19 03:58 05/14/19 03:58 05/14/19 05/14/19 03:58 03:58 WBC 6.8 RBC 3.87 Hgb 10.5 L Hct 32.5 L MCV 84 MCH 27.1 MCHC 32.4 RDW 16.0 H Plt Count 208 Sodium 138.6 Potassium 5.1 H Chloride 105 Carbon Dioxide 22 Anion Gap 12 BUN 57 H Creatinine 2.53 H Est GFR ( Amer) 23 L Glucose 366 H Calcium 9.1 05/11/19 05/11/19 05/12/19 19:06 21:56 02:37 Troponin I < 0.012 < 0.012 < 0.012 NT-Pro-B Natriuret Pep 3070 H 05/12/19 09:00 Troponin I < 0.012 NT-Pro-B Natriuret Pep EKG Comments: Twelve-lead EKG independently reviewed by me. Sinus rhythm, low voltage. Impressions: Chest X-Ray 05/11/19 15:00 IMPRESSION: REACTIVE AIRWAY DISEASE VERSUS VIRAL SYNDROME. NO CONSOLIDATION. Status: Image reviewed by me - Cardiomegaly, pulmonary vascular congestion. Assessment & Plan - Diagnosis (1) Pulmonary hypertension Is this a current diagnosis for this admission?: Yes Plan: Pulmonary hypertension is probably secondary to systemic hypertension and diastolic heart failure. I suspect that as she is being diuresed her PA pressures would likely improve. I reviewed the echocardiogram images and I suspect that she has moderate pulmonary hypertension and not likely severe. There is ideal that another echo be repeated when she is more euvolemic. Her pulmonary hypertension is likely due to a combination of the above as well as obesity hypoventilation. (2) Congestive heart failure Is this a current diagnosis for this admission?: Yes Plan: Likely diastolic heart failure. The ventricular ejection fraction appears to be preserved on echocardiogram. Agree with diuretics. Patient has to be continued on maintenance diuretic. She was advised against aggressive and excessive use of salt in the diet and salty foods. (3) Hypertension Is this a current diagnosis for this admission?: Yes Plan: Systemic hypertension. Advised against salt usage in the diet. Agree with medical therapy as present for systemic hypertension - Notes Notes: Agree with current management. Likely diastolic heart failure which appears to be responding to therapy. Would ideally be discharged on low-dose diuretic therapy We will schedule for outpatient follow-up and repeat transthoracic echocardiogram. Patient needs to make dietary changes including avoidance of added salt in the diet and better food choices.
[2019-05-14] MEDS: INSULIN GLARGINE,HUM.REC.ANLOG 1,000 UNIT/10 ML VIAL SUBCUT SCH (21:18)
[2019-05-14] MEDS: DOXAZOSIN MESYLATE 2 MG TABLET PO SCH (21:19)
[2019-05-15] MEDS: ALBUTEROL SULFATE 0.083% NEB 2.5 MG/3 ML AMPUL NEB PRN ×3 (01:51→12:38)
[2019-05-15 05:32] LABS: ANION GAP 13 (5-19); BLOOD UREA NITROGEN 59 mg/dL (7-20); CALCIUM 9.4 mg/dL (8.4-10.2); CARBON DIOXIDE 23 mmol/L (22-30); CHLORIDE 103 mmol/L (98-107); POTASSIUM 5.5 mmol/L (3.6-5.0)
[2019-05-15 05:55] LABS: GLUCOSE 416 mg/dL (75-110)
[2019-05-15] MEDS ORDERED: INSULIN REG, HUMAN 100 UNIT/ML 3 ML VIAL (PYX) ONE (06:25)
[2019-05-15] MEDS: HEPARIN SOD (PORCINE) 5,000 UNIT/ML 1 ML VIAL SUBCUT SCH ×3 (06:29→21:29)
[2019-05-15] MEDS ORDERED: INSULIN REG, HUMAN 100 UNIT/ML 3 ML VIAL (PYX) IV ONE (06:30)
[2019-05-15] MEDS ORDERED: SODIUM POLYSTYRENE SULFONATE 15 GM/60 ML PO ONE (07:35)
[2019-05-15] MEDS: NORMAL SALINE 1000 ML 1,000 ML IV PRN ×2 (07:48→15:38)
[2019-05-15] MEDS: INSULIN LISPRO 100 UNIT/ML 3 ML VIAL SUBCUT SCH ×3 (07:49→17:33)
[2019-05-15] MEDS: HYDRALAZINE HCL 50 MG TABLET PO SCH ×2 (09:19→17:33)
[2019-05-15] MEDS: FENOFIBRATE NANOCRYSTALLIZED 145 MG TABLET PO SCH (09:20)
[2019-05-15] MEDS: PREDNISONE 20 MG TABLET PO SCH (09:20)
[2019-05-15] MEDS: FLUTICASONE NASAL SPRAY 50 MCG/SPRY 120 SPRAY/16 GM NASL SCH (09:20)
[2019-05-15] MEDS: ASPIRIN 81 MG TABLET, ENT COATED PO SCH (09:20)
[2019-05-15] MEDS ORDERED: ACETAMINOPHEN 325 MG TABLET PO PRN (09:37)
[2019-05-15] MEDS: LEVOFLOXACIN 250 MG TABLET PO SCH (12:30)
--- NOTE | 2019-05-15 13:32 | PDOC PROGRESS REPORT ---
Subjective Progress Note for:: 05/15/19 Subjective:: NAYAN ZAPATA is a 68 year old female with a past medical history of CKD 3, diabetes, hypertension and morbid obesity who was admitted 05/11/19 for Hypertensive urgency and CHF exacerbation. The patient was seen on morning rounds. She was found sitting up to the recl iner, comfortably, on supplemental oxygen via NC. She reports continued wheezing though shortness of breath is improved. Has not been ambulatory yet. She denies fever, chills, chest pain, palpitations, abdominal pain, nausea vomiting and diarrhea. She has no other questions or concerns. Nursing reports very brief episodes of sinus tachycardia; each lasting less than 2 to 3 seconds with a rate in the 140s. Reason For Visit: SANTOS, MORBID OBESITY CKD DM HEART FAILURE Physical Exam Vital Signs: Temp Pulse Resp BP Pulse Ox 97.5 F 84 22 H 121/45 L 96 05/15/19 11:13 05/15/19 12:38 05/15/19 12:38 05/15/19 11:13 05/15/19 12:38 Intake & Output 05/14/19 05/15/19 05/16/19 06:59 06:59 06:59 Intake Total 800 2460 Balance 800 2460 Weight 137.4 kg 137 kg General appearance: PRESENT: no acute distress, cooperative, morbidly obese, well-developed, well-nourished Head exam: PRESENT: atraumatic, normocephalic Eye exam: PRESENT: conjunctiva pink, EOMI, PERRLA. ABSENT: scleral icterus Ear exam: PRESENT: normal external ear exam Mouth exam: PRESENT: moist, tongue midline Neck exam: ABSENT: carotid bruit, JVD, lymphadenopathy, thyromegaly Respiratory exam: PRESENT: symmetrical, unlabored, wheezes, other - Supplemental oxygen by nasal cannula. ABSENT: rales, rhonchi Cardiovascular exam: PRESENT: RRR, +S1, +S2. ABSENT: diastolic murmur, rubs, systolic murmur Pulses: PRESENT: normal dorsalis pedis pul Vascular exam: PRESENT: normal capillary refill GI/Abdominal exam: PRESENT: normal bowel sounds, soft. ABSENT: distended, guarding, mass, organolmegaly, rebound, tenderness Rectal exam: PRESENT: deferred Extremities exam: PRESENT: full ROM, pedal edema - Bilaterally. ABSENT: calf tenderness, clubbing Neurological exam: PRESENT: alert, awake, oriented to person, oriented to place, oriented to time, oriented to situation, CN II-XII grossly intact. ABSENT: motor sensory deficit Psychiatric exam: PRESENT: appropriate affect, normal mood. ABSENT: homicidal ideation, suicidal ideation Skin exam: PRESENT: dry, intact, warm. ABSENT: cyanosis, rash Results Laboratory Results: 05/14/19 03:58 05/15/19 03:41 05/15/19 03:41 Sodium 138.5 Potassium 5.5 H Chloride 103 Carbon Dioxide 23 Anion Gap 13 BUN 59 H Creatinine 2.44 H Est GFR ( Amer) 24 L Glucose 416 H* Calcium 9.4 05/11/19 17:55 Clean Catch Midstream Urine Culture - Final Proteus Mirabilis Staph Coagulase Negative 05/11/19 05/11/19 05/12/19 19:06 21:56 02:37 Troponin I < 0.012 < 0.012 < 0.012 NT-Pro-B Natriuret Pep 3070 H 05/12/19 09:00 Troponin I < 0.012 NT-Pro-B Natriuret Pep Impressions: Chest X-Ray 05/11/19 15:00 IMPRESSION: REACTIVE AIRWAY DISEASE VERSUS VIRAL SYNDROME. NO CONSOLIDATION. Assessment and Plan - Diagnosis (1) Acute worsening of stage 3 chronic kidney disease Is this a current diagnosis for this admission?: Yes Plan: Cr trending down; 2.44 Creatinine bumped to 2.63 from baseline of 1.9 related to IV furosemide. Continue gentle IV fluids Have discontinued furosemide. Have placed losartan, hydrochlorothiazide, and spironolactone on hold. Avoid nephrotoxic medications as able. Encourage p.o. fluids. Follow-up chemistry. (2) Hypertensive urgency Is this a current diagnosis for this admission?: Yes Plan: Resolved; acceptable blood pressures on home medication regiment. Patient is admitted to [facility] on continuous cardiac telemetry. We will continue her home medication regiment of Cardura and hydralazine. Losartan, hydrochlorothiazide, and spironolactone currently on hold secondary to acute kidney injury. Low-sodium diet. Cardiology consultation obtained; Dr. Helton recommends discharge home on diuretic. (3) Congestive heart failure Is this a current diagnosis for this admission?: Yes Plan: Echocardiogram demonstrates normal LVEF and left ventricular diastolic dysfunction. Does demonstrate severe pulmonary hypertension. proBNP elevated to 3000. Troponins negative x4. Patient is placed on a prerenal diet. Daily weights, strict I&O's. Resume home dose Cardura, losartan, and hydralazine. Hydrochlorothiazide and spironolactone currently on hold Daily aspirin and fenofibrate therapy. Registered dietitian and patient educator consulted. Appreciate cardiology consultation for pulmonary hypertension. (4) Diabetes Is this a current diagnosis for this admission?: Yes Plan: A1c is 7.8%. She is placed on a consistent carb/prerenal diet. Home medication regiment on hold (nonformulary). Accu-Cheks before meals and at bedtime with Humalog for sliding scale coverage. Hypoglycemia protocol. Registered dietitian and community health educator consulted. (5) History of asthma Is this a current diagnosis for this admission?: Yes Plan: Continues to have wheezing and shortness of breath on activity. She is not on maintenance medications. Continue Flonase. Supplemental oxygen as needed. As needed nebulizer treatments. Continue prednisone Pulmonary toilet, encourage ambulation. (6) Obstructive sleep apnea Is this a current diagnosis for this admission?: Yes Plan: Undiagnosed but strongly suspected by history, trial BiPAP Recommend outpatient sleep study. (7) CKD stage 3 due to type 2 diabetes mellitus Is this a current diagnosis for this admission?: Yes Plan: As above. - Time Time Spent with patient: 25-34 minutes Medications reviewed and adjusted accordingly: Yes Anticipated discharge: Home Within: within 24 hours - If ambulatory on room air and creatinine is less than 2.3
[2019-05-15] MEDS: METOPROLOL TARTRATE 25 MG TABLET PO SCH ×2 (14:46→21:29)
[2019-05-15] MEDS: LEVALBUTEROL HCL NEB 1.25 MG/3 ML AMPUL NEB PRN (19:27)
--- NOTE | 2019-05-15 20:52 | PDOC PROGRESS REPORT ---
Subjective Progress Note for:: 05/15/19 Subjective:: Seen and examined today. Resting in recliner. Has received incentive spirometer and bronchodilator therapy and feels much better. No complaints of chest pain. Reason For Visit: SANTOS, MORBID OBESITY CKD DM HEART FAILURE Physical Exam Vital Signs: Temp Pulse Resp BP Pulse Ox 98.0 F 86 20 145/55 H 96 05/15/19 15:59 05/15/19 19:29 05/15/19 19:29 05/15/19 15:59 05/15/19 19:29 Intake & Output 05/14/19 05/15/19 05/16/19 06:59 06:59 06:59 Intake Total 800 2460 1459 Balance 800 2460 1459 Weight 137.4 kg 137 kg General appearance: PRESENT: no acute distress, cooperative, obese Head exam: PRESENT: atraumatic Eye exam: PRESENT: EOMI Mouth exam: PRESENT: moist Respiratory exam: PRESENT: unlabored Cardiovascular exam: PRESENT: RRR, +S1, +S2 GI/Abdominal exam: PRESENT: soft Rectal exam: PRESENT: deferred Musculoskeletal exam: PRESENT: normal inspection Psychiatric exam: PRESENT: appropriate affect Skin exam: PRESENT: dry, intact, normal color Results Laboratory Results: 05/14/19 03:58 05/15/19 03:41 05/15/19 03:41 Sodium 138.5 Potassium 5.5 H Chloride 103 Carbon Dioxide 23 Anion Gap 13 BUN 59 H Creatinine 2.44 H Est GFR ( Amer) 24 L Glucose 416 H* Calcium 9.4 05/11/19 17:55 Clean Catch Midstream Urine Culture - Final Proteus Mirabilis Staph Coagulase Negative 05/11/19 05/11/19 05/12/19 19:06 21:56 02:37 Troponin I < 0.012 < 0.012 < 0.012 NT-Pro-B Natriuret Pep 3070 H 05/12/19 09:00 Troponin I < 0.012 NT-Pro-B Natriuret Pep Impressions: Chest X-Ray 05/11/19 15:00 IMPRESSION: REACTIVE AIRWAY DISEASE VERSUS VIRAL SYNDROME. NO CONSOLIDATION. Assessment & Plan - Diagnosis (1) Pulmonary hypertension Is this a current diagnosis for this admission?: Yes Plan: Probably a reflection of systemic hypertension volume overload This should improve with diuretic therapy and improvement in blood pressure. We will repeat echocardiogram as an outpatient to follow. (2) Congestive heart failure Is this a current diagnosis for this admission?: Yes Plan: Likely diastolic heart failure which is responded to diuretic therapy now with mild KENDRA. Overall symptomatically much improved. Would likely need maintenance low-dose diuretic upon discharge. (3) Hypertension Is this a current diagnosis for this admission?: Yes Plan: Avoid added salt in the diet Continue present regimen for treatment of blood pressure - Notes Notes: Clinically and symptomatically much improved. Control blood pressure. We will repeat echocardiogram as outpatient.
[2019-05-15] MEDS: DOXAZOSIN MESYLATE 2 MG TABLET PO SCH (21:30)
[2019-05-15] MEDS: INSULIN GLARGINE,HUM.REC.ANLOG 1,000 UNIT/10 ML VIAL SUBCUT SCH (22:05)
[2019-05-16] MEDS: HEPARIN SOD (PORCINE) 5,000 UNIT/ML 1 ML VIAL SUBCUT SCH ×2 (05:10→14:42)
[2019-05-16 05:20] LABS: ANION GAP 9 (5-19); BLOOD UREA NITROGEN 51 mg/dL (7-20); CARBON DIOXIDE 23 mmol/L (22-30); CHLORIDE 108 mmol/L (98-107); GLUCOSE 285 mg/dL (75-110); POTASSIUM 4.7 mmol/L (3.6-5.0)
[2019-05-16] MEDS: INSULIN LISPRO 100 UNIT/ML 3 ML VIAL SUBCUT SCH ×2 (08:50→11:54)
[2019-05-16] MEDS: LEVALBUTEROL HCL NEB 1.25 MG/3 ML AMPUL NEB PRN (09:49)
[2019-05-16] MEDS ORDERED: PREDNISONE 20 MG TABLET PO SCH (10:00)
[2019-05-16] MEDS: FLUTICASONE NASAL SPRAY 50 MCG/SPRY 120 SPRAY/16 GM NASL SCH (11:48)
[2019-05-16] MEDS: HYDRALAZINE HCL 50 MG TABLET PO SCH (11:49)
[2019-05-16] MEDS: METOPROLOL TARTRATE 25 MG TABLET PO SCH (11:49)
[2019-05-16] MEDS: FENOFIBRATE NANOCRYSTALLIZED 145 MG TABLET PO SCH (11:49)
[2019-05-16] MEDS: ASPIRIN 81 MG TABLET, ENT COATED PO SCH (11:49)
[2019-05-16] MEDS: LEVOFLOXACIN 250 MG TABLET PO SCH (11:54)
--- NOTE | 2019-05-16 14:23 | PDOC DISCHARGE SUMMARY ---
Impression - Admit/DC Date/PCP Admission Date/Primary Care Provider: 05/11/19 20:47 ERIK SAINI MD Discharge Date: 05/16/19 - Discharge Diagnosis (1) Acute worsening of stage 3 chronic kidney disease Is this a current diagnosis for this admission?: Yes (2) Congestive heart failure Is this a current diagnosis for this admission?: Yes (3) Hypertensive urgency Is this a current diagnosis for this admission?: Yes (4) CKD stage 3 due to type 2 diabetes mellitus Is this a current diagnosis for this admission?: Yes (5) Diabetes Is this a current diagnosis for this admission?: Yes (6) History of asthma Is this a current diagnosis for this admission?: Yes (7) Obstructive sleep apnea Is this a current diagnosis for this admission?: Yes (8) Morbid obesity with BMI of 50.0-59.9, adult Is this a current diagnosis for this admission?: Yes (9) Pulmonary hypertension Is this a current diagnosis for this admission?: Yes - Assessment Summary: Chronic kidney disease-continue current medications at discharge. Acute kidney injury on chronic kidney disease improved. Encourage low-sodium low-fat diet. Follow-up with nephrology. Congestive heart failure-normal systolic and diastolic function but severe pulmonary hypertension. Heart failure secondary to the pulmonary hypertension and chronic kidney disease. Continue medications as outlined above. Follow-up with cardiology. Diabetes mellitus type 2-due to her depressed creatinine clearance I have asked her to hold her metformin. I have increased her Januvia to 25 mg daily (she will no longer take Janumet at this time) continue Accu-Cheks and follow-up with primary care provider Pulmonary hypertension-continue attempts at good systemic blood pressure control. Follow-up with cardiology and consider pulmonary referral. History of asthma-complete prednisone therapy Obstructive sleep apnea-did well on BiPAP. Need to obtain a sleep study for formal diagnosis. Defer to primary care provider. Morbid obesity with BMI 53-suggest aggressive weight loss management program. Morbid obesity contributing to obstructive sleep apnea which then worsens pulmonary hypertension. Weight loss would also help her systemic hypertension and diabetes. Hypertensive emergency-blood pressure much improved on current medication regimen. Continue same as an outpatient. - Additional Information Resuscitation Status: Full Code Discharge Diet: Cardiac, Diabetic, Other (Comments) Discharge Activity: Activity As Tolerated, Balance Activity w/Rest, Weigh Daily Referrals: JESSY LAM MD [ACTIVE STAFF] - 05/22/19 3:40 pm BECKY GALVEZ MD [ACTIVE STAFF] - 05/23/19 9:15 am ERIK SAINI MD [Primary Care Provider] - 05/24/19 11:00 am () Prescriptions: Prednisone [Deltasone 5 mg Tablet] 5 mg PO ASDIR 12 Days #48 tablet Sitagliptin Phosphate [Januvia 25 mg Tablet] 25 mg PO DAILY #14 tablet Levofloxacin [Levaquin 250 mg Tablet] 250 mg PO DAILY 5 Days #5 tablet Metoprolol Tartrate [Lopressor 25 mg Tablet] 12.5 mg PO Q12 14 Days #14 tablet Home Medications: Albuterol Sulfate [Proair HFA Inhalation Aerosol 8.5 gm MDI] 2 puff IH Q4 PRN 05/11/19 Alprazolam [Xanax] 0.5 mg PO BIDP PRN 05/11/19 Doxazosin Mesylate [Cardura 2 mg Tablet] 2 mg PO QHS 05/11/19 Fenofibrate [Lipofen] 200 mg PO DAILY 05/11/19 Fluticasone Propionate [Flonase Nasal [place] 50 Mcg/[place] 16 gm] 2 sprays NASL DAILY 05/11/19 Hydralazine HCl 100 mg PO BID 05/11/19 Losartan/Hydrochlorothiazide [Hyzaar 100-12.5 Tablet] 1 each PO DAILY 05/11/19 Repaglinide 1 mg PO TID 05/11/19 Spironolactone [Aldactone 25 mg Tablet] 25 mg PO DAILY 05/11/19 Tapentadol Hydrochloride [Nucynta] 50 mg PO QIDP PRN 05/11/19 Aspirin [Ecotrin 81 mg EC Tablet] 81 mg PO DAILY tabec 05/16/19 Levofloxacin [Levaquin 250 mg Tablet] 250 mg PO DAILY 5 Days #5 tablet 05/16/19 Metoprolol Tartrate [Lopressor 25 mg Tablet] 12.5 mg PO Q12 14 Days #14 tablet 05/16/19 Prednisone [Deltasone 5 mg Tablet] 5 mg PO ASDIR 12 Days #48 tablet 05/16/19 Sitagliptin Phosphate [Januvia 25 mg Tablet] 25 mg PO DAILY #14 tablet 05/16/19 History of Present Illiness History of Present Illness: NAYAN ZAPATA is a 68 year old female admitted on May 11. Past medical history of type 2 diabetes mellitus with chronic kidney disease and h ypertension. She has morbid obesity with a BMI of 53. She has a history of hypertension as well. Evaluation revealed a systolic blood pressure greater than 190. Chest x-ray suggested pulmonary edema. Laboratory studies revealed an elevated brain natruretic peptide. She also has a history of obstructive sleep apnea. Her shortness of breath was felt to be due to her pulmonary edema and she was referred to the hospital service for admission. Hospital Course Hospital Course: The patient had a fairly unremarkable hospital course. With increased diuresis her pulmonary edema resolved. By balancing her medications her chronic kidney disease return to baseline. She did well on BiPAP and needs an outpatient sleep study to confirm her sleep apnea allowing appropriate treatment. Because of her acute on chronic kidney disease her Janumet will be held and I have increased her Januvia. Physical Exam Vital Signs: Temp Pulse Resp BP Pulse Ox 97.6 F 82 18 161/54 H 96 05/16/19 11:36 05/16/19 11:36 05/16/19 11:36 05/16/19 11:36 05/16/19 11:36 Intake & Output 05/15/19 05/16/19 05/17/19 06:59 06:59 06:59 Intake Total 2460 2039 240 Balance 2460 2039 240 Weight 137 kg 137 kg General appearance: PRESENT: no acute distress Head exam: PRESENT: atraumatic, normocephalic Ear exam: PRESENT: normal external ear exam. ABSENT: bleeding, drainage Mouth exam: PRESENT: moist, tongue midline Respiratory exam: PRESENT: rales - Faint rales at bases, symmetrical, unlabored. ABSENT: rhonchi, tachypnea, wheezes Cardiovascular exam: PRESENT: RRR, +S1, +S2 GI/Abdominal exam: PRESENT: normal bowel sounds, soft, other - Protuberant abdomen. ABSENT: tenderness Rectal exam: PRESENT: deferred Extremities exam: PRESENT: pedal edema Neurological exam: PRESENT: alert, awake, oriented to person, oriented to place, oriented to time, oriented to situation, CN II-XII grossly intact Psychiatric exam: PRESENT: appropriate affect. ABSENT: agitated, anxious Skin exam: PRESENT: dry, normal color, warm. ABSENT: rash Results Laboratory Results: WBC 6.8 10^3/uL (4.0-10.5) 05/14/19 03:58 RBC 3.87 10^6/uL (3.72-5.28) 05/14/19 03:58 Hgb 10.5 g/dL (12.0-15.5) L 05/14/19 03:58 Hct 32.5 % (36.0-47.0) L 05/14/19 03:58 MCV 84 fl (80-97) 05/14/19 03:58 MCH 27.1 pg (27.0-33.4) 05/14/19 03:58 MCHC 32.4 g/dL (32.0-36.0) 05/14/19 03:58 RDW 16.0 % (11.5-14.0) H 05/14/19 03:58 Plt Count 208 10^3/uL (150-450) 05/14/19 03:58 Lymph % (Auto) 8.0 % (13-45) L 05/12/19 02:37 [place] % (Auto) 2.6 % (3-13) L 05/12/19 02:37 Eos % (Auto) 0.0 % (0-6) 05/12/19 02:37 Baso % (Auto) 0.3 % (0-2) 05/12/19 02:37 Absolute Neuts (auto) 4.7 10^3/uL (1.7-8.2) 05/12/19 02:37 Absolute Lymphs (auto) 0.4 10^3/uL (0.5-4.7) L 05/12/19 02:37 Absolute Monos (auto) 0.1 10^3/uL (0.1-1.4) 05/12/19 02:37 Absolute Eos (auto) 0.0 10^3/uL (0.0-0.6) 05/12/19 02:37 Absolute Basos (auto) 0.0 10^3/uL (0.0-0.2) 05/12/19 02:37 Seg Neutrophils % 89.1 % (42-78) H 05/12/19 02:37 VBG pH 7.28 (7.30-7.42) L 05/11/19 19:06 VBG pCO2 54.9 mmHg (35-63) 05/11/19 19:06 VBG HCO3 25.4 mmol/L (20-32) 05/11/19 19:06 VBG Base Excess -2.2 mmol/L 05/11/19 19:06 Sodium 139.7 mmol/L (137-145) 05/16/19 04:21 Potassium 4.7 mmol/L (3.6-5.0) 05/16/19 04:21 Chloride 108 mmol/L (98-107) H 05/16/19 04:21 Carbon Dioxide 23 mmol/L (22-30) 05/16/19 04:21 Anion Gap 9 (5-19) 05/16/19 04:21 BUN 51 mg/dL (7-20) H 05/16/19 04:21 Creatinine 2.14 mg/dL (0.52-1.25) H 05/16/19 04:21 Est GFR ( Amer) 28 (>60) L 05/16/19 04:21 Est GFR (MDRD) Non-Af 23 (>60) L 05/16/19 04:21 Glucose 285 mg/dL (75-110) H 05/16/19 04:21 POC Glucose 164 mg/dL (70-110) H 05/16/19 11:35 Hemoglobin A1c % 7.8 % (4.7-6.0) H 05/11/19 21:56 Calcium 9.0 mg/dL (8.4-10.2) 05/16/19 04:21 Total Bilirubin 0.7 mg/dL (0.2-1.3) 05/11/19 19:06 Direct Bilirubin 0.6 mg/dL (0.0-0.4) H 05/11/19 19:06 Neonat Total Bilirubin Not Reportable 05/11/19 19:06 Neonat Direct Bilirubin Not Reportable 05/11/19 19:06 Neonat Indirect Bili Not Reportable 05/11/19 19:06 AST 52 U/L (14-36) H 05/11/19 19:06 ALT 23 U/L (<35) 05/11/19 19:06 Alkaline Phosphatase 49 U/L (38-126) 05/11/19 19:06 Troponin I < 0.012 ng/mL 05/12/19 09:00 NT-Pro-B Natriuret Pep 3070 pg/mL (<125) H 05/11/19 19:06 Total Protein 7.6 g/dL (6.3-8.2) 05/11/19 19:06 Albumin 4.2 g/dL (3.5-5.0) 05/11/19 19:06 TSH 1.33 uIU/mL (0.47-4.68) 05/11/19 19:06 Urine Color YELLOW 05/11/19 17:55 Urine Appearance SLIGHTLY-CLOUDY 05/11/19 17:55 Urine pH 5.0 (5.0-9.0) 05/11/19 17:55 Ur Specific [place] 1.017 05/11/19 17:55 Urine Protein >=500 mg/dL (NEGATIVE) H 05/11/19 17:55 Urine Glucose (UA) NEGATIVE mg/dL (NEGATIVE) 05/11/19 17:55 Urine Ketones NEGATIVE mg/dL (NEGATIVE) 05/11/19 17:55 Urine Blood NEGATIVE (NEGATIVE) 05/11/19 17:55 Urine Nitrite (Reflex) NEGATIVE (NEGATIVE) 05/11/19 17:55 Urine Bilirubin NEGATIVE (NEGATIVE) 05/11/19 17:55 Urine Urobilinogen NEGATIVE mg/dL (<2.0) 05/11/19 17:55 Leukocyte Esterase Rfl TRACE (NEGATIVE) H 05/11/19 17:55 Urine RBC (Auto) 0 /HPF 05/11/19 17:55 Urine Bacteria (Auto) TRACE /HPF 05/11/19 17:55 Urine WBC (Reflex) 1 /HPF 05/11/19 17:55 Squamous Epi Cells Auto 2 /HPF 05/11/19 17:55 Urine Mucus (Auto) RARE /LPF 05/11/19 17:55 Urine Ascorbic Acid NEGATIVE (NEGATIVE) 05/11/19 17:55 Influenza A (Rapid) NEGATIVE (NEGATIVE) 05/11/19 15:55 Influenza B (Rapid) NEGATIVE (NEGATIVE) 05/11/19 15:55 05/11/19 05/11/19 05/12/19 19:06 21:56 02:37 Troponin I < 0.012 < 0.012 < 0.012 NT-Pro-B Natriuret Pep 3070 H 05/12/19 09:00 Troponin I < 0.012 NT-Pro-B Natriuret Pep Impressions: Chest X-Ray 05/11/19 15:00 IMPRESSION: REACTIVE AIRWAY DISEASE VERSUS VIRAL SYNDROME. NO CONSOLIDATION. Plan Health Concerns: Morbid obesity with associated pulmonary hypertension, diabetes, chronic kidney disease, systemic hypertension. Pulmonary edema secondary to acute on chronic kidney disease, possible dietary noncompliance and hypertensive emergency. Hypertension and chronic kidney disease likely secondary to her diabetes. Plan of Treatment: As outlined above Goals: Stabilization of chronic kidney disease, better control of hypertension, evaluation and treatment for suspected sleep apnea, aggressive management of pulmonary hypertension and weight loss Time Spent: Greater than 30 Minutes Stroke Is this a Stroke Patient?: No Acute Heart Failure - Is this a Heart Failure Patient?: Yes Documentation of LVEF assessment?: Yes LVEF < 40%?: No- if no continue to question #3 3. Anticoagulant therapy for permanect/persistent/paraoxysmal Afib or Aflutter: N/A Follow-up Appointment scheduled within 7 days?: Yes
[2019-05-16 14:53] VITALS: BP 119/50
== END 2019-05-16 15:42 | disposition home health service (06) | DRG 292 ==
LOC: ER 14:49 → EH 20:47 → 3N 05-12 17:38
PROVIDERS: ADMIT Internal Medicine; ATTEND Internal Medicine
DX: I13.0 Hypertensive heart and chronic kidney disease with heart failure and stage 1 through stage 4 chronic kidney disease, or unspecified chronic kidney disease (principal); N17.9 Acute kidney failure, unspecified; I50.30 Unspecified diastolic (congestive) heart failure; Z68.43 Body mass index [BMI] 50.0-59.9, adult; I27.20 Pulmonary hypertension, unspecified; I16.0 Hypertensive urgency; N18.3 Chronic kidney disease, stage 3 (moderate); E11.22 Type 2 diabetes mellitus with diabetic chronic kidney disease; J45.909 Unspecified asthma, uncomplicated; G47.33 Obstructive sleep apnea (adult) (pediatric); E66.01 Morbid (severe) obesity due to excess calories; Z79.84 Long term (current) use of oral hypoglycemic drugs; Z79.51 Long term (current) use of inhaled steroids; Z79.899 Other long term (current) drug therapy
CPT/HCPCS: 36415; 71046; 80048; 80053; 81001; 82803; 82962; 83036; 83880; 84443; 84484; 85025; 85027; 87086; 87088; 87186; 87804; 93005; 93010; 93306; 94640; 94660; 94667; 94799; 96361; 96365; 96375; 99285; J1644; J1815; J1940; J2270; J2930; J3475; J3490; J7030; J7512; J7620

== ENCOUNTER 2019-12-28 07:44 | Day surgery (SDC) | payer MEDICARE ==
[~2019-12-28 07:44] MED LIST: KETOROLAC TROMETHAMINE 0.45% 4 DROP/0.4 ML DROPERETTE OS PRN; LIDOCAINE 1%/PHENYLEPHRINE 1.5% 0.8 ML SYRINGE ONE
[2019-12-28] MEDS: TROPICAMIDE 1% OPH SOLN 15 ML OS PRN ×3 (08:25→08:45)
[2019-12-28] MEDS: CYCLOPENTOLATE 0.2%/PHENYLEPHRINE 1% OPH SOLN 2 ML OS PRN ×3 (08:25→08:45)
[2019-12-28] MEDS: BESIFLOXACIN HCL 0.6% OPH SUSP 5 ML BOTTLE OS PRN ×4 (08:25→09:24)
[2019-12-28] MEDS: TETRACAINE HCL 0.5% OPH SOLN 4 ML OS PRN ×4 (08:25→09:01)
[2019-12-28] MEDS ORDERED: FENTANYL CITRATE INJ/PF 100 MCG/2 ML AMPUL ONE (08:39)
[2019-12-28] MEDS ORDERED: MIDAZOLAM 2 MG/2 ML INJ ONE (08:39)
[2019-12-28] MEDS: CHONDR SU A NA/HYALUR INTRAOC KIT (SURGICARE) ONE ×2 (09:11)
[2019-12-28] MEDS: EPINEPHRINE INJ/PF 1 MG/1 ML AMPULE ONE ×2 (09:11)
[2019-12-28] MEDS: DORZOLAMIDE HCL 2%/TIMOLOL MALEAT 0.5% OPH SOLN 10 ML OS PRN ×2 (09:24)
--- NOTE | 2019-12-28 12:38 | Operative Report ---
Operative Report-[facility] Operative Report: DATE OF SURGERY: 12/28/2019 PREOPERATIVE DIAGNOSIS: Cataracts, left eye POSTOPERATIVE DIAGNOSIS: Cataract, left eye OPERATION: Cataract extraction with insertion of an toric IOL of the left eye. Intraocular Lens Model: [17.0 sn6at3 rotated to 166] Underwent surgery for difficulty with glare from headlights at night making it difficulty to drive SURGEON: Amandeep Zavala MD ANESTHESIA: Topical PROCEDURE: After obtaining appropriate consent, the patient's left eye was prepped and draped in a sterile fashion as well as the surgeon in the sterile manner and cataract surgery was started. First a paracentesis blade was used to make a side-port incision. Viscoelastic was used to inflate the anterior luis nathan. Next a 2.4 mm incision was made with a 2.4 mm blade, clear corneal temporarily. A continuous capsulorrhexis was made using a cystotome and Utrata forceps. Following this hydrodissection was carried out to make the lens fully loose and mobile and it was rotated 90 degrees. Following this, a divide and conquer technique was used to phacoemulsify the lens. The remaining cortex was removed with an irrigation/aspiration. Provisc was instilled into the capsular bag to inflate the bag.The intraocular lens was placed. The remaining viscoelastic material was removed with irrigation/aspiration. Following this, the incision was found to be watertight. Besivance and Cosopt was instilled into the eye and a protective shield was placed over the eye. The patient was returned to the postoperative recovery in a stable condition.
== END 2019-12-28 10:05 | disposition home or self-care (01) ==
LOC: SC 07:44
PROVIDERS: ATTEND Internal Medicine
DX: H25.13 Age-related nuclear cataract, bilateral (principal); H35.372 Puckering of macula, left eye; Z88.0 Allergy status to penicillin; Z88.1 Allergy status to other antibiotic agents; I10 Essential (primary) hypertension; E11.9 Type 2 diabetes mellitus without complications; E78.00 Pure hypercholesterolemia, unspecified; J45.909 Unspecified asthma, uncomplicated; Z87.891 Personal history of nicotine dependence; Z79.899 Other long term (current) drug therapy
CPT/HCPCS: 66984; 82962; 00142; J2250; J3490 ×3; A9270; J0171; J3010; 142

== ENCOUNTER 2020-01-18 08:33 | Day surgery (SDC) | payer MEDICARE ==
[~2020-01-18 08:33] MED LIST changes: +CHONDR SU A NA/HYALUR INTRAOC KIT (SURGICARE) ONE; +EPINEPHRINE INJ/PF 1 MG/1 ML AMPULE ONE; +KETOROLAC TROMETHAMINE 0.45% 4 DROP/0.4 ML DROPERETTE OD PRN; -KETOROLAC TROMETHAMINE 0.45% 4 DROP/0.4 ML DROPERETTE OS PRN
[2020-01-18] MEDS ORDERED: MIDAZOLAM 2 MG/2 ML INJ ONE (08:57)
[2020-01-18] MEDS ORDERED: ONDANSETRON HCL INJ/PF 4 MG/2 ML SDV ONE (08:57)
[2020-01-18] MEDS ORDERED: FENTANYL CITRATE INJ/PF 100 MCG/2 ML AMPUL ONE (08:58)
[2020-01-18] MEDS: TROPICAMIDE 1% OPH SOLN 15 ML OD PRN ×3 (09:22→09:42)
[2020-01-18] MEDS: CYCLOPENTOLATE 0.2%/PHENYLEPHRINE 1% OPH SOLN 2 ML OD PRN ×3 (09:22→09:42)
[2020-01-18] MEDS: BESIFLOXACIN HCL 0.6% OPH SUSP 5 ML BOTTLE OD PRN ×4 (09:22→10:26)
[2020-01-18] MEDS: TETRACAINE HCL 0.5% OPH SOLN 4 ML OD PRN ×3 (09:23→10:04)
[2020-01-18] MEDS: DORZOLAMIDE HCL 2%/TIMOLOL MALEAT 0.5% OPH SOLN 10 ML OD PRN ×2 (10:26)
[2020-01-18] MEDS: PREDNISOLONE ACETATE 1% OPH SUSP 5 ML OD PRN ×2 (10:26)
--- NOTE | 2020-01-18 14:33 | Operative Report ---
Operative Report-[facility] Operative Report: DATE OF SURGERY: 01/18/2020 PREOPERATIVE DIAGNOSIS: Cataract, right eye POSTOPERATIVE DIAGNOSIS: Cataract, right eye OPERATION: Cataract extraction with insertion of an toric IOL of the right eye. Intraocular Lens Model: [18.5 diopter SN 6AT 3 lens rotated to 180 degrees} patient underwent surgery for difficulty seeing medicine bottles SURGEON: Amandeep Zavala MD ANESTHESIA: Topical PROCEDURE: After obtaining appropriate consent, the patient's right eye was prepped and draped in a sterile fashion as well as the surgeon in the sterile manner and cataract surgery was started. First a paracentesis blade was used to make a side-port incision. Viscoelastic was used to inflate the anterior chamber. Next a 2.4 mm incision was made with a 2.4 mm blade, clear corneal temporarily. A continuous capsulorrhexis was made using a cystotome and Utrata forceps. Following this hydrodissection was carried out to make the pauline fully loose and mobile and it was rotated. Following this, a divide and conquer technique was used to phacoemulsify the pauline. The remaining cortex was removed with an irrigation/aspiration. Provisc was instilled into the capsular bag to inflate the bag. The intraocular lens was placed. The remaining viscoelastic material was removed with irrigation/aspiration. Following this, the incision was found to be watertight. Besivance and Cosopt was instilled into the eye and a protective shield was placed over the eye. The patient was reurned to the postoperative recovery in a stable condition.
== END 2020-01-18 10:58 | disposition home or self-care (01) ==
LOC: SC 08:33
PROVIDERS: ATTEND Internal Medicine
DX: H25.11 Age-related nuclear cataract, right eye (principal); Z96.1 Presence of intraocular lens; I10 Essential (primary) hypertension; E11.9 Type 2 diabetes mellitus without complications; J45.909 Unspecified asthma, uncomplicated; Z79.899 Other long term (current) drug therapy; Z79.84 Long term (current) use of oral hypoglycemic drugs; Z87.891 Personal history of nicotine dependence
CPT/HCPCS: 82962; 00142; 66984; J2250; J3490 ×3; A9270; J0171; J3010; J2405; 142